=== PATIENT | female | born 1990 ===

== ENCOUNTER 2025-01-18 09:42 | Emergency (ER) | payer OTHER, SELFPAY ==
--- NOTE | ~2025-01-18 | XR_ITS ---
EXAMINATION: XR CHEST CLINICAL INFORMATION: cp/sob COMPARISON: None available. TECHNIQUE: 2 views of the chest were obtained. FINDINGS: Left-sided dual-lead in place with leads extending into the right atrium and right ventricle. The cardiac, hilar, and mediastinal contours are normal. The lungs are clear bilaterally. There is no pneumothorax or pleural effusion. There is no focal osseous or soft tissue abnormality. XR/XR chest 2V IMPRESSION: No active pulmonary disease. Electronically signed by: Avelino Holley MD 01/18/2025 10:58 AM EDT
--- NOTE | 2025-01-18 09:43 | ECG_ITS ---
Test Reason : chest pressure Blood Pressure : */* mmHG Vent. Rate : 59 BPM Atrial Rate : 59 BPM P-R Int : 208 ms QRS Dur : 110 ms QT Int : 460 ms P-R-T Axes : 28 5 4 degrees QTcB Int : 455 ms Sinus bradycardia Otherwise normal ECG No previous ECGs available Referred By: Generic ED Physician Electronically Signed By: Elliot Torres
[2025-01-18 09:49] VITALS: BP 149/91; PULSE 59; RESP 18; TEMP 36.3; O2SAT 97; BMI 48.3
[2025-01-18 10:23] LABS: MANUAL DIFF FLAG NO
[2025-01-18 10:25] LABS: Basophils Percent Auto 0.4 % (0-2); Eosinophils Absolute Auto 0.1 X10*3/uL (0.0-0.4); Eosinophils Percent Auto 1.9 % (0-4); Hemoglobin 13.1 g/dl (12.0-16.0); Imm Gran Abs Auto 0.01 X10*3/uL (0.00-0.03); Imm Gran Pct Auto 0.1 % (0.0-0.4); Lymphocytes Absolute Auto 1.2 X10*3/uL (1.2-4.9); Lymphocytes Percent Auto 17.9 % (20-40); Mean Corpuscular HGB Conc 32.8 g/dl (31.0-35.0); Mean Corpuscular Hemoglobin 28.8 pg (27.0-33.0); Mean Corpuscular Volume 87.9 fL (80.0-98.0); Mean Platelet Volume 10.8 fL (9.4-12.3); Monocytes Absolute Auto 0.5 X10*3/uL (0.1-1.2); Neutrophils Absolute Auto 4.9 x10*3/uL (2.0-8.3); Neutrophils Percent Auto 72.7 % (45-73); Platelet Count 182 X10*3/uL (160-400); Red Blood Count 4.55 X10*6/uL (4.20-5.50); Red Cell Distribution Width 13.2 % (11.0-16.0); White Blood Count 6.7 X10*3/uL (4.8-10.8)
[2025-01-18 10:42] LABS: Alanine Aminotransferase 11 U/L (0-31); Albumin Level 3.8 g/dL (3.5-5.0); Alkaline Phosphatase 93 U/L (39-117); Anion Gap 10 (12-20); Aspartate Amino Transferase 16 U/L (5-31); Bilirubin Total 0.3 mg/dL (0.0-1.0); Blood Urea Nitrogen 19 mg/dL (9-16); Calcium 8.8 mg/dL (8.4-10.2); Carbon Dioxide 26 mmol/L (22-29); Chloride 109 mmol/L (96-108); Creatinine Clr Calc Pharmacy 119.5; Estimated Glomerular Filt Rate > 60; Glucose Random 89 mg/dL (60-115); Potassium 4.1 mmol/L (3.3-5.1); Sodium 141 mmol/L (135-145); Total Protein 6.8 g/dL (6.5-8.0)
[2025-01-18 10:47] LABS: B Type Natriuretic Peptide 128 pg/mL (<100)
[2025-01-18 10:51] LABS: Troponin-I High Sensitivity < 2.7 ng/L (<3.5-17.0)
--- NOTE | 2025-01-18 11:20 | ED.CHESTPAIN ---
HPI - Chest Pain General Chief Complaint: Chest Pain Stated Complaint: AFIB, chest pressure since last night Time Seen by Provider: 01/18/25 11:20 History of Present Illness ED Provider: Shira HERRERA narrative: The patient is a 34-year-old female who was diagnosed with a atrial fibrillation at the age of 22. Apparently this was 1st diagnosed in [place]. She isn't really able to tell me why she was found to have atrial fibrillation at sudden she young age. She says that she has had pacemaker placed since the diagnosis. She has been on anticoagulation. She is also on flecainide. Recently the patient has been living in [place]. She was last hospitalized at [facility] in [facility] 2 months ago. 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 She has been on apixaban up to that point. Because of the finding of an atrial clot she was switched to warfarin, so she is currently on warfarin. The patient says that she has not felt well since yesterday. She developed a headache and palpitations last night. She ultimately felt somewhat better but this morning she again felt palpitations. She also felt short of breath and felt that she had pain with inspiration. Also her headache returned today. She therefore came to the emergency room. She has moved to this area from [place]. She has not yet established any local providers for care. Related Data Allergies Allergy/AdvReac Type Severity Reaction Status Date / Time No Known Allergies Allergy Verified 01/18/25 09:51 Review of Systems Review of Systems: Yes all other systems are reviewed and are negative [facility] Social History Social History Smoked in Last 30 Days: No Use of substances other than those prescribed or required for medical reasons: No Advance Directives: No Advance Directives Information Provided: No Do you have a plan to hurt others: No Plan Patient : No Physical Exam Vital Signs: Vital Signs: Last Vital Signs Temp 97.9 F 01/18/25 14:17 Pulse 57 01/18/25 14:17 Resp 17 01/18/25 14:17 BP 114/72 01/18/25 14:17 Pulse Ox 98 01/18/25 14:17 O2 Del Method Room Air 01/18/25 14:17 BMI result Body Mass Index 48.3 Const: Other: The patient is awake, alert, pleasant, cooperative. She does not seem in acute distress. HEENT: Other: Face is symmetrical, mucous membranes moist Eyes: General: appearance normal, both eyes and all related structures Neck: Other: The neck is entirely supple. No JVD. Resp: Effort & Inspection: normal respiratory effort Auscultation: clear to auscultation bilaterally Cardio: Rhythm: regular rhythm Heart sounds: S1 normal heart sound present and S2 normal heart sound present GI: Other: Abdomen is soft and nontender Skin: Other: Skin is dry and unremarkable Neuro: Other: The patient is awake and alert with a normal mental status. Cranial nerves are grossly intact. She has a supple neck. She moves her extremities normally with normal strength and sensation throughout and seems entirely neurologically intact. Extrem: Other: No calf swelling or tenderness Medications Administered Discontinued Medications Generic Name Dose Route Start Last Admin Trade Name Renuka PRN Reason Stop Dose Admin Diphenhydramine HCl 25 mg 01/18/25 11:42 01/18/25 12:12 Diphenhydramine Hcl 50 Mg/Ml Vial IVPUSH 01/18/25 11:43 25 mg ONCE ONE Administration Acetaminophen 1,000 mg in 100 mls @ 400 mls/hr 01/18/25 11:41 01/18/25 12:40 Ofirmev IV 01/18/25 11:55 Infused ONCE ONE Infusion Metoclopramide HCl 10 mg 01/18/25 11:42 01/18/25 12:12 Metoclopramide Hcl 10 Mg/2 Ml Vial IVPUSH 01/18/25 11:43 10 mg ONCE ONE Administration Medical Decision Making Medical Decision Making [facility] Narrative: The patient is a very pleasant 34-year-old female who has an unusual history with regard to atrial fibrillation. She says she was diagnosed with atrial fibrillation at the age of 22. This was originally diagnosed in [place]. For reasons she is not able to articulate she also has a pacemaker. She is on warfarin. She says that she was switched to warfarin from a DOAC recently because an echocardiogram had identified and atrial clot while on a DOAC. I believe this was a few months ago at [facility] in [place], [place]. She is also on flecainide. The patient has moved to this area and has not yet established any local doctors. She does not have a local primary care doctor or perfect bind machine operator. She describes having symptoms that may have been episodes of atrial fibrillation last night. She believes she is normally not in atrial fibrillation. She also was complaining of a headache and some pleuritic chest discomfort. Clinically the patient does not look particularly unwell on my suspicion for either a pulmonary embolism or an intracranial hemorrhage and this patient would be low despite her complaints of pleuritic chest pain and headache. She has a an unremarkable CBC with a normal white count and differential. Anticoagulation is somewhat subtherapeutic with the an INR 1.8. She has a an undetectable D-dimer. Comprehensive metabolic panel is unremarkable. Troponin is undetectable. BNP is mildly elevated at 128. Chest x-ray is normal. EKG shows sinus bradycardia 59 beats per minute. It is an otherwise normal EKG. The patient was treated symptomatically for her headache with IV acetaminophen, metoclopramide, and diphenhydramine. She felt considerably better. Her headache resolved. Her chest symptoms also resolved. Given her normal EKG, normal chest x-ray, undetectable D-dimer, normal vital signs, an overall benign clinical appearance my suspicion for any acutely dangerous process is low. I suspect she had some episodes of atrial fibrillation last night but she does not reveal any atrial fibrillation on the monitor here today. Occasionally she seemed to have a paced rhythm when her heart rate was slower. My overall impression is that the patient is safe for discharge. She will be given contact information to try to establish a local PCP and a local perfect bind machine operator. She is also given the contact information for the local anticoagulation clinic. In the meantime she should contact her old Coumadin clinic in [place] for advice regarding management of her slightly subtherapeutic INR today. She should return if worse. Lab Data 01/18/25 10:07 01/18/25 10:07 Labs: Lab Results 01/18/25 01/18/25 Range/Units 10:07 12:01 WBC 6.7 (4.8-10.8) X10*3/uL RBC 4.55 (4.20-5.50) X10*6/uL Hgb 13.1 (12.0-16.0) g/dl Hct 40.0 (37.0-47.0) % MCV 87.9 (80.0-98.0) fL MCH 28.8 (27.0-33.0) pg MCHC 32.8 (31.0-35.0) g/dl RDW 13.2 (11.0-16.0) % Plt Count 182 (160-400) X10*3/uL MPV 10.8 (9.4-12.3) fL Immature Gran % (Auto) 0.1 (0.0-0.4) % Neut % (Auto) 72.7 (45-73) % Lymph % (Auto) 17.9 L (20-40) % [place] % (Auto) 7.0 (2-11) % Eos % (Auto) 1.9 (0-4) % Baso % (Auto) 0.4 (0-2) % Lymph # (Auto) 1.2 (1.2-4.9) X10*3/uL [place] # (Auto) 0.5 (0.1-1.2) X10*3/uL Eos # (Auto) 0.1 (0.0-0.4) X10*3/uL Baso # (Auto) 0.0 (0.0-0.2) X10*3/uL Abs Immat Gran (auto) 0.01 (0.00-0.03) X10*3/uL Absolute Neuts (auto) 4.9 (2.0-8.3) x10*3/uL Absolute Nucleated RBC 0.000 (0.0-0.012) X10*3/uL Nucleated RBC % (auto) 0.0 (0.0-0.2) /100WBC PT 20.6 H (10.9-12.4) SEC INR 1.8 H (0.9-1.1) D-Dimer High Sensitivty < 150 NG/ML Sodium 141 (135-145) mmol/L Potassium 4.1 (3.3-5.1) mmol/L Chloride 109 H (96-108) mmol/L Carbon Dioxide 26 (22-29) mmol/L Anion Gap 10 L (12-20) BUN 19 H (9-16) mg/dL Creatinine 0.90 (0.5-1.4) mg/dL Estim Creat Clear Calc 119.5 Estimated GFR > 60 Random Glucose 89 (60-115) mg/dL Calcium 8.8 (8.4-10.2) mg/dL Total Bilirubin 0.3 (0.0-1.0) mg/dL AST 16 (5-31) U/L ALT 11 (0-31) U/L Alkaline Phosphatase 93 (39-117) U/L Troponin I High Sens < 2.7 (<3.5-17.0) ng/L B-Natriuretic Peptide 128 H (<100) pg/mL Total Protein 6.8 (6.5-8.0) g/dL Albumin 3.8 (3.5-5.0) g/dL Discharge Plan Discharge Clinical Impression: Chest pain, Headache, Paroxysmal atrial fibrillation Patient Disposition: Home, Self-Care Additional Instructions: Your testing in the emergency room today seems reassuring. The only finding of significance is that your INR is slightly subtherapeutic. Your INR today is 1.8. Please contact the office that has been advising you about warfarin (Coumadin) about any possible change in dosing in the short run. In the meantime you can try to get connected with the [facility] anticoagulation service. You can call [phone]. Additionally you will need to get a local primary care doctor and a local perfect bind machine operator. I have provided contact information for possible primary care offices. I have also provided the contact information for the local cardiology office. Please continue your regular medications. Return to the emergency room if you feel significantly worse. Referrals: [facility] [Provider Group] (New in the area, needs primary care, history of AFib and pacemaker) [facility] Primary Care, [place] [Provider Group] (New in the area, needs primary care, history of AFib and pacemaker) Tiffany Asif MD [Physician] - (New in the area, needs primary care, history of AFib and pacemaker) Interventions: ED Discharge Assessment Last Done: 01/18/25 14:17 Discharge Date/Time: 01/18/25 14:18 Print Language: Gambian
[2025-01-18] MEDS: diphenhydrAMINE HCL 50 MG/ML VIAL 25 MG IVPUSH (12:12)
[2025-01-18] MEDS: Metoclopramide HCl 10 MG/2 ML VIAL IVPUSH (12:12)
[2025-01-18] MEDS: Acetaminophen 1,000 MG/100 ML PIGGYBACK 400 MG IV (12:12)
[2025-01-18 12:13] VITALS: BP 114/72; PULSE 57; RESP 15; TEMP 36.6; O2SAT 98
[2025-01-18 12:23] LABS: INTERNATIONAL NORM RATIO 1.8 (0.9-1.1); Prothrombin Time 20.6 SEC (10.9-12.4)
[2025-01-18 12:26] LABS: D Dimer High Sensitivity < 150 NG/ML
[2025-01-18 14:17] VITALS: BP 114/72; PULSE 57; RESP 17; TEMP 36.6; O2SAT 98
== END 2025-01-18 14:18 | disposition home or self-care (01) ==
PROVIDERS: Emergency Provider Emergency Medicine
DX: R07.89 Other chest pain (principal); I48.0 Paroxysmal atrial fibrillation; R51.9 Headache, unspecified; R06.02 Shortness of breath; Z79.899 Other long term (current) drug therapy
CPT/HCPCS: 36415; 71046; 80053; 83880; 84484; 85025; 85379; 85610; 93005; 96365; 96375; 99284; 99285; J0131; J1200; J2765

== ENCOUNTER → 2025-01-18 09:43 | Outpatient (BNV) | payer OTHER, SELFPAY | PROVIDERS: Emergency Provider Emergency Medicine; Visit Provider Internal Medicine Cardiovascular Disease | DX: R07.89 Other chest pain (principal); R00.1 Bradycardia, unspecified | CPT/HCPCS: 93010 ==

== ENCOUNTER → 2025-01-18 10:39 | Outpatient (BNV) | payer SELFPAY | PROVIDERS: Visit Provider Radiology Diagnostic Radiology | DX: R07.9 Chest pain, unspecified (principal); R06.02 Shortness of breath | CPT/HCPCS: 71046 ==

== ENCOUNTER 2025-01-29 13:16 | Emergency (ER) | payer OTHER, SELFPAY ==
[2025-01-29 13:32] VITALS: BP 140/80; PULSE 57; RESP 16; TEMP 36.3; O2SAT 98; BMI 50.2
--- NOTE | 2025-01-29 13:43 | ED.GENADULT ---
HPI - General Adult General Chief complaint: Allergic Reaction Stated complaint: Hives Time Seen by Provider: 01/29/25 14:19 History of Present Illness HPI narrative: Patient is a 34-year-old female presented today with having hives all over her body since December. Patient was started on Wellbutrin right before that. Patient unsure the dose. She stopped it herself 2 days ago. There is no fever no chills. She took some Benadryl at home. It did not help. There is no other changes in her environment additional shortness of breath there is no diaphoresis there is no dizziness there is no other systemic complaints. Patient from home. Related Data Previous Rx's ?Medication ?Instructions ?Recorded diphenhydramine HCl 25 mg capsule 25 mg PO Q8H 5 days #15 caps 01/29/25 (Benadryl) famotidine 20 mg tablet (Pepcid) 20 mg PO BID 5 days #10 tabs 01/29/25 prednisone 20 mg tablet 40 mg (2 x 20 mg) PO DAILY #10 tabs 01/29/25 Allergies Allergy/AdvReac Type Severity Reaction Status Date / Time bupropion Allergy Intermediate Hives Verified 01/29/25 13:33 Review of Systems Review of Systems: No fever no chills no diaphoresis no shortness of breath Yes all other systems are reviewed and are negative [facility] Past Medical History Attestation statement: The following information was validated with the patient. Social History Social History Advance Directives: No Advance Directives Information Provided: Yes Do you have a plan to hurt others: No Plan Physical Exam ED Vital Signs: Vital Signs - 24 hr 01/29/25 13:32 01/29/25 14:24 Temperature 97.4 F 97.0 F Pulse Rate 57 55 Respiratory Rate 16 18 Blood Pressure 140/80 H 124/65 Pulse Oximetry 98 98 Oxygen Delivery Method Room Air Room Air BMI result Body Mass Index 50.2 Appearance: Alert. Oriented X3. No acute distress. Eyes: Pupils equal, round and reactive to light. ENT: Pharynx normal. Neck: Normal inspection. Neck supple. No lymph nodes noted. No crepitus CVS: Normal heart rate and rhythm. Pulses normal. Normal S1 and S2 Respiratory: No respiratory distress. Breath sounds normal. No Wheezing. No rales Abdomen: Soft and nontender. No rigidity. No distention. good BS x4 Skin: Diffuse erythematous rash that is blanching not involving any mucosal membrane over the head over the face over the neck Normal skin turgor. Extremities: No lower extremity edema. Neurovascular intact to all extremities. No Lacerations. No Rash Neuro: Oriented X 3. No motor deficit. No sensory deficit. Moving all extermities. No slurred speech Course Course Course Narrative: RME, this is a rapid medical exam performed by Ck Mejía please refer to primary provider for complete H&P- 34-year-old female presents for evaluation of hives. Patient reports that she has had hives on and off for about a month and a half. Her symptoms started about a week after starting bupropion. she did not take the bupropion yesterday. She reports hives to her chest and back mostly, denies any shortness of breath. She also complains of palpitations. Plan for basic labs, EKG due to palpitations. She will be given Benadryl, Pepcid, prednisone for her urticaria. No evidence of respiratory compromise, lungs are clear to auscultation Medications Administered Discontinued Medications Generic Name Dose Route Start Last Admin Trade Name Freq PRN Reason Stop Dose Admin Diphenhydramine HCl 50 mg 01/29/25 13:42 01/29/25 14:22 Diphenhydramine Hcl 25 Mg Capsule PO 01/29/25 13:43 50 mg ONCE ONE Administration Famotidine 20 mg 01/29/25 13:42 01/29/25 14:23 Famotidine 20 Mg Tablet PO 01/29/25 13:43 20 mg ONCE ONE Administration Prednisone 60 mg 01/29/25 13:42 01/29/25 14:23 Prednisone 20 Mg Tablet PO 01/29/25 13:43 60 mg ONCE ONE Administration Medical Decision Making Medical Decision Making MDM Narrative: Positive uritcaria rash that is blanching not involving any mucosal membrane there is no shortness of breath. No diaphoresis. No fever no chills. No systemic complaints no dizziness. Will give steroid Benadryl and Pepcid on an outpatient basis. Have patient follow-up closely. Contact psychiatrist on an outpatient basis. Patient already stop the possible offending agent. He stable condition will discharge from Differential Diagnosis Differential Diagnoses: The differential diagnosis associated with the presentation includes Allergic reaction, [place] Admission/Observation Consideration of admission/observation: Escalation of care including admission/observation considered Lab Data MDM Lab Attestation statement: I reviewed the patient's lab results. 01/29/25 13:57 01/29/25 13:56 Labs: Lab Results 01/29/25 01/29/25 Range/Units 13:56 13:57 WBC 7.9 (4.8-10.8) X10*3/uL RBC 4.51 (4.20-5.50) X10*6/uL Hgb 13.1 (12.0-16.0) g/dl Hct 39.9 (37.0-47.0) % MCV 88.5 (80.0-98.0) fL MCH 29.0 (27.0-33.0) pg MCHC 32.8 (31.0-35.0) g/dl RDW 13.6 (11.0-16.0) % Plt Count 206 (160-400) X10*3/uL MPV 10.0 (9.4-12.3) fL Immature Gran % (Auto) 0.1 (0.0-0.4) % Neut % (Auto) 65.9 (45-73) % Lymph % (Auto) 25.7 (20-40) % [place] % (Auto) 6.8 (2-11) % Eos % (Auto) 1.0 (0-4) % Baso % (Auto) 0.5 (0-2) % Lymph # (Auto) 2.0 (1.2-4.9) X10*3/uL [place] # (Auto) 0.5 (0.1-1.2) X10*3/uL Eos # (Auto) 0.1 (0.0-0.4) X10*3/uL Baso # (Auto) 0.0 (0.0-0.2) X10*3/uL Abs Immat Gran (auto) 0.01 (0.00-0.03) X10*3/uL Absolute Neuts (auto) 5.2 (2.0-8.3) x10*3/uL Absolute Nucleated RBC 0.000 (0.0-0.012) X10*3/uL Nucleated RBC % (auto) 0.0 (0.0-0.2) /100WBC Sodium 142 (135-145) mmol/L Potassium 4.3 (3.3-5.1) mmol/L Chloride 107 (96-108) mmol/L Carbon Dioxide 28 (22-29) mmol/L Anion Gap 11 L (12-20) BUN 18 H (9-16) mg/dL Creatinine 0.89 (0.5-1.4) mg/dL Estim Creat Clear Calc 123.8 Estimated GFR > 60 Random Glucose 106 (60-115) mg/dL Calcium 8.5 (8.4-10.2) mg/dL Magnesium 1.9 (1.6-2.6) mg/dL Total Bilirubin 0.4 (0.0-1.0) mg/dL AST 17 (5-31) U/L ALT 14 (0-31) U/L Alkaline Phosphatase 93 (39-117) U/L Total Protein 6.6 (6.5-8.0) g/dL Albumin 3.7 (3.5-5.0) g/dL Beta HCG, Quant < 2 mIU/mL Chronic Conditions History of atrial fibrillation Social Determinants Patient?s care significantly limited by Social Determinants of Health including: Problems related to primary support group Discharge Plan Discharge Clinical Impression: Allergic reaction, Urticaria Patient Disposition: Home, Self-Care Instructions: Urticaria (ED), General Allergic Reaction (ED) Additional Instructions: Follow-up with your psychiatrist about Wellbutrin. Prescriptions: New prednisone 20 mg tablet 40 mg PO DAILY Qty: 10 0RF famotidine [Pepcid] 20 mg tablet 20 mg PO BID 5 Days Qty: 10 0RF diphenhydramine HCl [Benadryl] 25 mg capsule 25 mg PO Q8H 5 Days Qty: 15 0RF Referrals: Physician,None [Physician] - 02/01/25 (Follow-up with your primary care doctor and with your psychiatrist) Print Language: Indonesian
--- NOTE | 2025-01-29 13:44 | ECG_ITS ---
Test Reason : palpitations Blood Pressure : */* mmHG Vent. Rate : 76 BPM Atrial Rate : 76 BPM P-R Int : 216 ms QRS Dur : 82 ms QT Int : 426 ms P-R-T Axes : -2 1 -11 degrees QTcB Int : 479 ms Atrial-paced rhythm with prolonged AV conduction Minimal voltage criteria for LVH, may be normal variant ( R in aVL ) Nonspecific ST and T wave abnormality Abnormal ECG When compared with ECG of 18-Jan-2025 09:46, Atrial-paced rhythm has replaced Normal sinus rhythm Referred By: Rudolph Mejía Electronically Signed By: NONA ZUÑIGA MD
[2025-01-29 14:01] LABS: MANUAL DIFF FLAG NO
[2025-01-29 14:02] LABS: Basophils Percent Auto 0.5 % (0-2); Eosinophils Absolute Auto 0.1 X10*3/uL (0.0-0.4); Hematocrit 39.9 % (37.0-47.0); Hemoglobin 13.1 g/dl (12.0-16.0); Imm Gran Abs Auto 0.01 X10*3/uL (0.00-0.03); Imm Gran Pct Auto 0.1 % (0.0-0.4); Lymphocytes Percent Auto 25.7 % (20-40); Mean Corpuscular HGB Conc 32.8 g/dl (31.0-35.0); Mean Corpuscular Volume 88.5 fL (80.0-98.0); Monocytes Absolute Auto 0.5 X10*3/uL (0.1-1.2); Monocytes Percent Auto 6.8 % (2-11); Neutrophils Absolute Auto 5.2 x10*3/uL (2.0-8.3); Neutrophils Percent Auto 65.9 % (45-73); Platelet Count 206 X10*3/uL (160-400); Red Blood Count 4.51 X10*6/uL (4.20-5.50); Red Cell Distribution Width 13.6 % (11.0-16.0); White Blood Count 7.9 X10*3/uL (4.8-10.8)
[2025-01-29 14:22] LABS: Alanine Aminotransferase 14 U/L (0-31); Albumin Level 3.7 g/dL (3.5-5.0); Anion Gap 11 (12-20); Aspartate Amino Transferase 17 U/L (5-31); Bilirubin Total 0.4 mg/dL (0.0-1.0); Blood Urea Nitrogen 18 mg/dL (9-16); Calcium 8.5 mg/dL (8.4-10.2); Carbon Dioxide 28 mmol/L (22-29); Chloride 107 mmol/L (96-108); Creatinine Clr Calc Pharmacy 123.8; Estimated Glomerular Filt Rate > 60; Glucose Random 106 mg/dL (60-115); Magnesium 1.9 mg/dL (1.6-2.6); Potassium 4.3 mmol/L (3.3-5.1); Sodium 142 mmol/L (135-145); Total Protein 6.6 g/dL (6.5-8.0)
[2025-01-29] MEDS: diphenhydrAMINE HCL 25 MG CAPSULE 50 MG PO (14:22)
[2025-01-29] MEDS: predniSONE 20 MG TABLET 60 MG PO (14:23)
[2025-01-29] MEDS: Famotidine 20 MG TABLET PO (14:23)
[2025-01-29 14:24] VITALS: BP 124/65; PULSE 55; RESP 18; TEMP 36.1; O2SAT 98
[2025-01-29 14:25] LABS: Alkaline Phosphatase 93 U/L (39-117); HCG Quantitative < 2 mIU/mL
--- OUTSIDE RECORDS SUMMARY | 2025-01-29 14:26 | XMS_ITS | Continuity of Care Document ---
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
[2025-01-29 14:54] VITALS: BP 124/65; PULSE 55; RESP 18; TEMP 36.1; O2SAT 98
== END 2025-01-29 14:54 | disposition home or self-care (01) ==
PROVIDERS: Physician Assistant; Emergency Provider Emergency Medicine Emergency Medical Services; PCP Internal Medicine
DX: T78.40XA Allergy, unspecified, initial encounter (principal); L50.9 Urticaria, unspecified; X58.XXXA Exposure to other specified factors, initial encounter; R00.2 Palpitations
CPT/HCPCS: 36415; 80053; 83735; 84702; 85025; 93005; 99283; 99284

== ENCOUNTER → 2025-01-29 13:44 | Outpatient (BNV) | payer OTHER, SELFPAY | PROVIDERS: Emergency Provider Emergency Medicine Emergency Medical Services; PCP Internal Medicine; Visit Provider Internal Medicine Cardiovascular Disease | DX: R00.2 Palpitations (principal); R94.31 Abnormal electrocardiogram [ECG] [EKG] | CPT/HCPCS: 93010 ==

== ENCOUNTER 2025-03-05 12:14 | Outpatient (REF) | payer OTHER, SELFPAY ==
[2025-03-05 13:19] LABS: MANUAL DIFF FLAG NO
[2025-03-05 13:29] LABS: Basophils Absolute Auto 0.1 X10*3/uL (0.0-0.2); Basophils Percent Auto 0.5 % (0-2); Eosinophils Absolute Auto 0.1 X10*3/uL (0.0-0.4); Eosinophils Percent Auto 0.8 % (0-4); Hematocrit 40.7 % (37.0-47.0); Hemoglobin 13.6 g/dl (12.0-16.0); Imm Gran Abs Auto 0.02 X10*3/uL (0.00-0.03); Imm Gran Pct Auto 0.2 % (0.0-0.4); Lymphocytes Absolute Auto 1.9 X10*3/uL (1.2-4.9); Lymphocytes Percent Auto 19.5 % (20-40); Mean Corpuscular HGB Conc 33.4 g/dl (31.0-35.0); Mean Corpuscular Hemoglobin 29.7 pg (27.0-33.0); Mean Corpuscular Volume 88.9 fL (80.0-98.0); Mean Platelet Volume 10.8 fL (9.4-12.3); Monocytes Absolute Auto 0.8 X10*3/uL (0.1-1.2); Monocytes Percent Auto 7.8 % (2-11); Neutrophils Percent Auto 71.2 % (45-73); Platelet Count 222 X10*3/uL (160-400); Red Blood Count 4.58 X10*6/uL (4.20-5.50); Red Cell Distribution Width 13.2 % (11.0-16.0); White Blood Count 9.8 X10*3/uL (4.8-10.8)
--- OUTSIDE RECORDS SUMMARY | 2025-03-05 13:38 | XMS_ITS ---
Author Name [facility] Organization Unknown Results Test Name/Text Value Interpretation Date Range Source BUN/CREAT RATIO 13.5 Normal [id number] R [facility] BUN 14MG/DL Normal [id number] 6 - 20 [facility] ANION GAP 12MEQ/L Normal [id number] 4 - 20 [facility] CALCIUM 8.6MG/DL Normal [id number] 8.5 - 10.5 [facility] eGFR 72ML/MIN/1.73M Normal [id number] 60 - RI [facility] SODIUM 144MEQ/L Normal [id number] 135 - 146 [facility] CARBON DIOXIDE 27MEQ/L Normal [id number] 19 - 32 [facility] GLUCOSE 86MG/DL Normal [id number] 70 - 99 [facility] OSMOLALITY 286.6mOsm/kg Normal [id number] 270 - 290 [facility] POTASSIUM 4MEQ/L Normal [id number] 3.5 - 5.4 [facility] CREATININE 1.04MG/DL Normal [id number] 0.6 - 1.3 [facility] CHLORIDE 105MEQ/L Normal [id number] 96 - 106 [facility] WBC 8K/uL Normal [id number] 4 - 10 [facility] EOSINOPHILS 1.4% Normal [id number] [facility] HEMATOCRIT 41.2% Normal [id number] 36 - 47 [facility] BASOPHILS 0.3% Normal [id number] [facility] # NEUTROPHILS 4.84K/uL Normal [id number] 2 - 8 [facility] PLATELET 380297 Normal [id number] 358143 - 962719 [facility] # MONOCYTES 0.56K/UL Normal [id number] 0.2 - 1 [facility] RDW-SD 43.2fL Normal [id number] 35 - 46 [facility] MCHC 32.5g/dL Normal [id number] 31 - 36 [facility] NUCLEATED RBC 0NRBC/100WBC Normal [id number] 0 - 0 [facility] # LYMPHOCYTES 2.45K/UL Normal [id number] 0.8 - 4 [facility] RBC 4.56MILLION/uL Normal [id number] 4.3 - 5.5 [facility] # IMMATURE GRANULOCYTES 0.02K/UL Normal [id number] 0 - 0.1 [facility] # BASOPHILS 0.02K/UL Normal [id number] 0 - 0.2 [facility] MCH 29.4pg Normal [id number] 25 - 34 [facility] # NRBC 0k/UL Normal [id number] 0 - 0.1 [facility] IMMATURE GRANULOCYTES 0.3% Normal [facility] NEUTROPHILS 60.4% Normal [id number] [facility] # EOSINOPHILS 0.11K/UL Normal [id number] 0 - 0.5 [facility] MCV 90.4fL Normal [id number] 80 - 99 [facility] MONOCYTES 7% Normal [id number] [facility] LYMPHOCYTES 30.6% Normal [id number] [facility] HEMOGLOBIN 13.4g/dL Normal [id number] 12 - 16 [facility] PROTHROMBIN TIME 22.7SECONDS Normal [id number] [facility] INR 2 Normal [id number] [facility] Encounters Encounter Type Encounter Reason Primary Diagnosis Location Date Ambulatory [facility] 02/14/2025 Ambulatory [facility] 02/14/2025 Care Team Organization Name Specialty Phone Email Start Date End Da te Joel PAZ Primary Care [facility] 02/15/2025 [facility] Aditya Crane Primary Care [facility]24 [facility] N/A Linen Room Houseperson N/A N/A 01/23/2025 [facility] ANGELO PAZ Primary Care 2024 [facility] BROOK MATIAS Primary Care 01/12/2025
[2025-03-05 13:41] LABS: INTERNATIONAL NORM RATIO 1.6 (0.9-1.1); Prothrombin Time 18.9 SEC (10.9-12.4)
[2025-03-05 14:02] LABS: Alanine Aminotransferase 14 U/L (0-31); Albumin Level 4.1 g/dL (3.5-5.0); Alkaline Phosphatase 85 U/L (39-117); Anion Gap 12 (12-20); Aspartate Amino Transferase 19 U/L (5-31); Bilirubin Total 0.3 mg/dL (0.0-1.0); Blood Urea Nitrogen 17 mg/dL (9-16); Calcium 8.9 mg/dL (8.4-10.2); Carbon Dioxide 26 mmol/L (22-29); Chloride 111 mmol/L (96-108); Cholesterol 169 mg/dL (<200); Estimated Glomerular Filt Rate > 60; Glucose Random 81 mg/dL (60-115); HDL Cholesterol 39 mg/dL (>40); LDL Cholesterol Calculated 113 mg/dL (<100); Potassium 4.1 mmol/L (3.3-5.1); Sodium 145 mmol/L (135-145); Thyroid Stimulating Hormone 1.35 uIU/mL (0.32-4.0); Triglycerides 89 mg/dL (<150)
== END 2025-03-05 12:15 | disposition home or self-care (01) ==
LOC: HO.10HDL 12:14
PROVIDERS: Visit Provider Internal Medicine
DX: E28.2 Polycystic ovarian syndrome (principal); E66.01 Morbid (severe) obesity due to excess calories; F32.9 Major depressive disorder, single episode, unspecified; I49.5 Sick sinus syndrome; I50.9 Heart failure, unspecified; Z95.0 Presence of cardiac pacemaker; Z98.84 Bariatric surgery status
CPT/HCPCS: 36415; 80053; 80061; 84443; 85025; 85610

== ENCOUNTER 2025-04-13 09:09 | Outpatient (AMB) | payer MEDICAID, SELFPAY ==
--- OUTSIDE RECORDS SUMMARY | 2004-04-15 20:00 | XMS_ITS | Continuity of Care Document ---
Author Organization Chris Ritchie [facility] Address [address] [place] [address] Phone Care Team Providers Care Town Marshal Name Role Phone Z-Converted, Provider Unavailable Unavailabl e Advance Directives Directive Yes / No Effective Date File Name No Information Encounters Encounter Description Practice Location Reason(s) For Visit Diagnoses Date Provider Providers Copied on Encounter Chris Carreno [facility], [address] [place] [address],[address], [place], [place], [id number], [place] tel:[phone] [place] [facility] Elevated blood pressure reading without diagnosis [...]
--- NOTE | 2025-04-13 09:31 | MHC.OFFVISCO ---
Intake Intake Visit Reasons: Anticoagulation Financial Representative Required: No Allergies bupropion Allergy (Intermediate, Verified 04/13/25 09:19) Hives Medication List - Last Reconciled 04/13/25 by Sagrario Weiss RN warfarin 2.5 mg PO DAILY Is last menstrual period known: Yes Last menstrual period: 04/05/25 Post menopausal: No Patient : No Nursing Note INR: 3.0- in therapeutic range of 2-3 Medications and supplements reviewed- med list updated No changes in health, diet, medications, or supplements, Denies any signs and symptoms of bleeding or bruising or clotting. Bleeding, bruising, clotting discussed Nutritional guidance given - eat a green today Dose: cont reg dosing 7.5mg x 2 5mg x 5 F/U INR: 1 week Patient verbalizes understanding of instructions given pt admitted to acs today - on warfarin due to developing a clot right atrium pmh and meds reviewed with pt. med list updated. educational material reviewed with pt including s/s bleeding and clotting dietary management discussed, pt no show and compliance reviewed and signed by pt. pt prev on eliquis and she states developed clot right atrium, she was transitioned to warfarin 11/2024. 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 Illness/Depression: Yes (depression/anxiety) Is last menstrual period known: Yes Date of Last Menstrual Period: 04/05/25 Post menopausal: No Patient : No Surgeries: pacemaker, bariatric surgery 09/2024 Anti-Coag. Education Record Teaching Recipient: Patient What is the easiest way to learn: Reading, Listening, Demonstration and Education Packet Significant other who can be involved in Teaching Process when Indicated: none Financial Representative Required: No Readiness To Learn: Good Teaching Methods: Demonstration, Discussion, Handout and Teach Back Response to Teaching: Reinforcement Needed Re-Education needs: Reinforce Content Education Intervention/Brief Description of Teaching 1. Able to state reason for taking Warfarin: Yes 2. Able to state Pain Management techniques: Yes 3. Able to state action of Warfarin.: Yes Able to state current dose, pill color, how and when Warfarin to be taken: Yes Able to identify signs of bleeding &/or clotting: Yes 4. Able to identify need to keep diet consistent in regard to vitamin K intake: Yes Able to state restriction on alcohol: Yes 5. Able to state need for compliance with PT/INR testing: Yes Describes rationale for carrying ID and wearing Medic Alert bracelet: Yes Patient instructed to monitor for excess bruising or signs/symptoms of clotting or bleeding: Yes 6. Able to state that there are drugs that interact with Warfin: Yes 7. Able to state the need to seek medical attention when illness/injury occur.: Yes Describes the need to avoid activities with high risk of injury: Yes 8. Able to state duration of treatment: Yes 9. Demonstrates understanding of notifying all providers of pending dental surgical, or other invasive procedures: Yes 10. Able to state Home Care instructions Questionnaires HAS-BLED Does the patient had uncontrolled Hypertension?: No Does the patient have renal disease?: No Does the patient have liver disease?: No Does the patient have a history of stroke?: Yes (mini stroke) Has the patient had major bleeding or predisposition to bleeding?: No Does the patient have labile INRs?: Yes Is the patient over 65 years of age?: No Is the patient on medications that gives them a predisposition to bleeding?: Yes Does the patient use alcohol?: Yes HAS-BLED Score: 4 CHADSVASC Age: <65 Gender: Female Does the patient have a history of CHF?: Yes Does the patient have a history of Hypertension?: Yes Does the patient have a history of Stroke/TIA/Thromboembolism?: Yes Does the patient have a history of Vascular Disease (prior ID, PAD or aortic plaque)?: No Does the patient have a history of Diabetes?: No CHADS VACS Score: 5 Nilson Prediction Score Rsk VTE Active Cancer: No Previous VTE, excluding superficial vein thrombosis: Yes Reduced mobility: No Already known Thrombophilic Condition: No With-in last month Trauma and/or Surgery: No Elderly 70 year or older: No Heart and/or Respiratory Failure: Yes Acute Myocardial infarction and/or Ischemic Stroke: Yes Acute Infection and/or Rheumatologic Disorder: No Obesity (BMI 30 or greater): Yes Ongoing Hormonal Treatment: No Score: 6 Nilson Score less than 4; Low Risk of VTE Nilson Score 4 or greater; High Risk of VTE Coding Level of Care Code New Patient Level 2 Diagnoses Current use of anticoagulant therapy Z79.01 Results AMB INR Fingerstick AMB INR Fingerstick 3.0 Last Edit by Sagrario Weiss RN on 04/13/25 09:56 interface delay Assessment & Plan Assessment & Plan (1) Current use of anticoagulant therapy: Code(s): Z79.01 - residential (current) use of anticoagulants Category: Medical Medications: New flecainide 100 mg PO Q12H amlodipine 10 mg PO DAILY magnesium oxide 400 mg PO BID metoprolol succinate ER 50 mg PO BID sacubitril-valsartan 24-26 mg (Entresto) 1 tab PO BID cholecalciferol (vitamin D3) 25 mcg PO BID
[2025-04-13 16:23] LABS: Prothrombin Time Whole Bld POC 35.7 sec (11.1-13.5); ~PT, ~INR - Anti Coag Clinic 3.0 (0.9-1.1)
== END 2025-04-13 10:52 | disposition home or self-care (01) ==
LOC: HO.ACS 09:09
PROVIDERS: PCP Internal Medicine; Visit Provider Internal Medicine Medical Oncology
DX: Z79.01 Long term (current) use of anticoagulants (principal)

== ENCOUNTER → 2025-04-13 09:09 | Outpatient (BNVA) | payer MEDICAID, SELFPAY | PROVIDERS: PCP Internal Medicine; Visit Provider Internal Medicine Medical Oncology | DX: I48.0 Paroxysmal atrial fibrillation (principal); I48.19 Other persistent atrial fibrillation; Z79.01 Long term (current) use of anticoagulants; Z51.81 Encounter for therapeutic drug level monitoring | CPT/HCPCS: 85610; 99202 ==

== ENCOUNTER 2025-04-13 19:08 | Emergency (ER) | payer MEDICAID, SELFPAY ==
--- NOTE | ~2025-04-13 | CT_ITS ---
CLINICAL HISTORY: fall, headache and dizziness CT head without contrast Comparison: None Findings: There is no acute intracranial hemorrhage. Ventricles are of normal size and shape. No mass effect or midline shift is present. The tovar-white matter differentiation appears normal. The visualized portions of the orbits, paranasal sinuses, and mastoids are unremarkable. No fractures are identified. IMPRESSION: Normal noncontrast head CT. This document has been electronically signed by: Chris Hope MD on 04/13/2025 20:15:42
[2025-04-13 19:12] VITALS: BP 130/96; PULSE 120; RESP 16; TEMP 36.8; O2SAT 96; BMI 50.1
--- NOTE | 2025-04-13 19:14 | ECG_ITS ---
Test Reason : weakness Blood Pressure : */* mmHG Vent. Rate : 115 BPM Atrial Rate : 227 BPM P-R Int : * ms QRS Dur : 100 ms QT Int : 278 ms P-R-T Axes : 162 -9 62 degrees QTcB Int : 384 ms Atrial flutter with variable A-V block Left ventricular hypertrophy with repolarization abnormality ( R in aVL ) Abnormal ECG When compared with ECG of 29-Jan-2025 13:47, Atrial flutter has replaced Electronic ventricular pacemaker Vent. rate has increased by 39 bpm Referred By: Rudolph Mejía Electronically Signed By: Elliot Torres
--- NOTE | 2025-04-13 19:14 | ED.GENADULT ---
HPI - General Adult General Chief complaint: Fall Stated complaint: head, shoulder, leg injury, dizziness fall 04/12/25 Time Seen by Provider: 04/13/25 20:50 Source: patient Mode of arrival: ambulatory Limitations: no limitations History of Present Illness ED Provider: HPI narrative: Patient's with a history of AFib on Coumadin apparently had marijuana yesterday and got dizzy and fell hitting her head to the ground comes here for the headache no loss of consciousness no seizures no vomiting Related Data Home Medications ?Medication ?Instructions ?Recorded ?Confirmed amlodipine 10 mg tablet 10 mg PO DAILY 04/13/25 04/13/25 cholecalciferol (vitamin D3) 25 25 mcg PO BID 04/13/25 04/13/25 mcg (1,000 unit) capsule flecainide 100 mg tablet 100 mg PO Q12H 04/13/25 04/13/25 magnesium oxide 400 mg PO BID 04/13/25 04/13/25 metoprolol succinate 50 mg capsule 50 mg PO BID 04/13/25 04/13/25 sprinkle, ext. release 24 hr sacubitril 24 mg-valsartan 26 mg 1 tab PO BID 04/13/25 04/13/25 tablet (Entresto) warfarin 2.5 mg tablet 2.5 mg PO DAILY 04/13/25 04/13/25 Allergies Allergy/AdvReac Type Severity Reaction Status Date / Time bupropion Allergy Intermediate Hives Verified 04/13/25 19:16 Review of Systems Review of Systems: Yes all other systems are reviewed and are negative PMFSH Past Medical History Medical History Current use of anticoagulant therapy Afib Social History Social History Housing: Apartment Alcohol intake: current Alcohol intake frequency: a few times a month Patient Tobacco Use Status: Never used Tobacco Smoked in Last 30 Days: No Use of substances other than those prescribed or required for medical reasons: Yes Substance Use Type: Marijuana Substance Use Frequency: Occasionally Substance Use Frequency Other:: 1 Last Used Substance: Days (ago) Advance Directives: No Advance Directives Information Provided: No Do you have a plan to hurt others: No Plan 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 Oriented X3. No acute distress. Eyes: PERRLA, No Nystagmus ENT: Pharynx normal. Oral Mucosa moist Neck: Normal inspection. Neck supple. No midline tenderness CVS: Irregularly irregular heart rate no murmur. Pulses normal. Respiratory: No respiratory distress. Equal air entry bilateral, no wheezing/rales/rhonchi Abdomen: Soft and nontender. Bowel sounds are present, no mass palpable, no CVA tenderness Skin: Skin warm and dry. Normal skin color. Normal skin turgor. Extremities: No lower extremity edema. No calf tenderness Neuro: Oriented X 3. No motor deficit. No sensory deficit.No cerebellar signs , cranial nerves II-XII intact Course Course Course Narrative: RME, this is a rapid medical exam performed by Ck Mejía please refer to primary provider for complete H&P- 35-year-old female with a past medical history significant for atrial fibrillation on Coumadin, hypertension presents for evaluation after a fall. The patient reports falling yesterday. She has had headaches and dizziness since. Plan for CT scan of the brain given the anticoagulation, we will check basic labs, EKG and an INR. Medications Administered Discontinued Medications Generic Name Dose Route Start Last Admin Trade Name Freq PRN Reason Stop Dose Admin Tramadol HCl 50 mg 04/13/25 21:06 04/13/25 21:23 Tramadol Hcl 50 Mg Tablet PO 04/13/25 21:07 50 mg ONCE ONE Administration Medical Decision Making Medical Decision Making [facility] Narrative: Patient with history of mechanical fall after marijuana use head CT is negative no active bleed will discharge patient home advised to take Tylenol for headache labs are stable Lab Data [facility] Lab Attestation statement: I reviewed the patient's lab results. 04/13/25 19:26 04/13/25 19:26 Labs: Lab Results 04/13/25 Range/Units 19: WBC 9.4 (4.8-10.8) X10*3/uL RBC 4.66 (4.20-5.50) X10*6/uL Hgb 13.8 (12.0-16.0) g/dl Hct 41.0 (37.0-47.0) % MCV 88.0 (80.0-98.0) fL MCH 29.6 (27.0-33.0) pg MCHC 33.7 (31.0-35.0) g/dl RDW 12.8 (11.0-16.0) % Plt Count 239 (160-400) X10*3/uL MPV 10.3 (9.4-12.3) fL Immature Gran % (Auto) 0.3 (0.0-0.4) % Neut % (Auto) 73.5 H (45-73) % Lymph % (Auto) 17.9 L (20-40) % Garden % (Auto) 7.6 (2-11) % Eos % (Auto) 0.3 (0-4) % Baso % (Auto) 0.4 (0-2) % Lymph # (Auto) 1.7 (1.2-4.9) X10*3/uL Garden # (Auto) 0.7 (0.1-1.2) X10*3/uL Eos # (Auto) 0.0 (0.0-0.4) X10*3/uL Baso # (Auto) 0.0 (0.0-0.2) X10*3/uL Abs Immat Gran (auto) 0.03 (0.00-0.03) X10*3/uL Absolute Neuts (auto) 6.9 (2.0-8.3) x10*3/uL Absolute Nucleated RBC 0.000 (0.0-0.012) X10*3/uL Nucleated RBC % (auto) 0.0 (0.0-0.2) /100WBC PT 31.8 H D (10.9-12.4) SEC INR 2.8 H (0.9-1.1) Sodium 143 (135-145) mmol/L Potassium 3.9 (3.3-5.1) mmol/L Chloride 111 H (96-108) mmol/L Carbon Dioxide 22 (22-29) mmol/L Anion Gap 14 (12-20) BUN 15 (9-16) mg/dL Creatinine 1.07 (0.5-1.4) mg/dL Estim Creat Clear Calc 98.3 Estimated GFR 58 Random Glucose 134 H (60-115) mg/dL Calcium 8.7 (8.4-10.2) mg/dL Total Bilirubin 0.6 (0.0-1.0) mg/dL AST 103 H (5-31) U/L ALT 166 H (0-31) U/L Alkaline Phosphatase 88 (39-117) U/L Total Protein 7.0 (6.5-8.0) g/dL Albumin 4.2 (3.5-5.0) g/dL Beta HCG, Quant < 2 mIU/mL Independent Interpretation I performed an independent interpretation of an: EKG and CT Scan Interpretation: Atrial flutter with variable block ventricular rate [address]-T changes no acute ischemia Radiology Impression Discussion of test interpretation with radiology: I have reviewed the radiologist's reading. Radiologist Impression: No acute Discharge Plan Discharge Clinical Impression: Minor closed head injury, Atrial fibrillation Patient Disposition: Home, Self-Care Instructions: A-fib (Atrial Fibrillation) (ED), Head Injury (ED) Additional Instructions: Care and cautions as advised Continue take your medications as prescribed by electrical logging operator Prescriptions: No Action warfarin 2.5 mg tablet 2.5 mg PO DAILY Protocol: Dose Management Condition: Wednesday (Week One) Dose/Route: 5 mg Instruction: 2 x 2.5 mg tablets Condition: Wednesday Dose/Route: 5 mg Instruction: 2 x 2.5 mg tablets Condition: Wednesday Dose/Route: 7.5 mg Instruction: 3 x 2.5 mg tablets Condition: Wednesday Dose/Route: 5 mg Instruction: 2 x 2.5 mg tablets Condition: Dose/Route: 5 mg Instruction: 2 x 2.5 mg tablets Condition: Wednesday Dose/Route: 7.5 mg Instruction: 3 x 2.5 mg tablets Condition: Wednesday Dose/Route: 5 mg Instruction: 2 x 2.5 mg tablets Condition: Wednesday (Week Two) Dose/Route: 5 mg Instruction: 2 x 2.5 mg tablets Condition: Wednesday Dose/Route: 5 mg Instruction: 2 x 2.5 mg tablets Condition: Wednesday Dose/Route: 7.5 mg Instruction: 3 x 2.5 mg tablets Condition: Wednesday Dose/Route: 5 mg Instruction: 2 x 2.5 mg tablets Condition: Dose/Route: 5 mg Instruction: 2 x 2.5 mg tablets Condition: Wednesday Dose/Route: 7.5 mg Instruction: 3 x 2.5 mg tablets Condition: Wednesday Dose/Route: 5 mg Instruction: 2 x 2.5 mg tablets Protocol Text: Adjustment Start Date: Wednesday04/13/25 INR Value: 3.0 INR Date: 04/13/25 Recheck Date: 04/20/25 Additional Instructions: cont same dosing have a green today amlodipine 10 mg tablet 10 mg PO DAILY flecainide 100 mg tablet 100 mg PO Q12H magnesium oxide 400 mg magnesium capsule 400 mg PO BID metoprolol succinate 50 mg capsule,sprinkle,ER 24hr 50 mg PO BID cholecalciferol (vitamin D3) 25 mcg (1,000 unit) capsule 25 mcg PO BID Entresto 24-26 mg tablet 1 tab PO BID Interventions: ED Discharge Assessment Last Done: 04/13/25 21:24 Discharge Date/Time: 04/13/25 21:28 Print Language: Persian
[2025-04-13 19:29] LABS: MANUAL DIFF FLAG NO
[2025-04-13 19:30] LABS: Hematocrit 41.0 % (37.0-47.0); Hemoglobin 13.8 g/dl (12.0-16.0); Imm Gran Abs Auto 0.03 X10*3/uL (0.00-0.03); Imm Gran Pct Auto 0.3 % (0.0-0.4); Lymphocytes Absolute Auto 1.7 X10*3/uL (1.2-4.9); Mean Corpuscular HGB Conc 33.7 g/dl (31.0-35.0); Mean Corpuscular Hemoglobin 29.6 pg (27.0-33.0); Mean Corpuscular Volume 88.0 fL (80.0-98.0); NRBC Abs Auto 0.000 X10*3/uL (0.0-0.012); NRBC Pct Auto 0.0 /100WBC (0.0-0.2); Platelet Count 239 X10*3/uL (160-400); Red Blood Count 4.66 X10*6/uL (4.20-5.50); White Blood Count 9.4 X10*3/uL (4.8-10.8)
--- OUTSIDE RECORDS SUMMARY | 2025-04-13 19:31 | XMS_ITS ---
Author Name [facility] Organization Unknown Results Test Name/Text Value Interpretation Date Range Source BUN/CREAT RATIO 13.5 Normal 12/25/2024 [facility] BUN 14.0 MG/DL Normal 12/25/2024 6 - 20 [facility] ANION GAP 12.0 MEQ/L Normal 12/25/2024 4 - 20 [facility] CALCIUM 8.6 MG/DL Normal 12/25/2024 8.5 - 10.5 [facility] eGFR 72.0 ML/MIN/1.73M Normal 12/25/2024 60 - [facility] SODIUM 144.0 MEQ/L Normal 12/25/2024 135 - 146 [facility] CARBON DIOXIDE 27.0 MEQ/L Normal 12/25/2024 19 - 32 [facility] GLUCOSE 86.0 MG/DL Normal 12/25/2024 70 - 99 [facility] OSMOLALITY 286.6 mOsm/kg Normal 12/25/2024 270 - 290 [facility] POTASSIUM 4.0 MEQ/L Normal 12/25/2024 3.5 - 5.4 [facility] CREATININE 1.04 MG/DL Normal 12/25/2024 0.6 - 1.3 [facility] CHLORIDE 105.0 MEQ/L Normal 12/25/2024 96 - 106 [facility] WBC 8.0 K/uL Normal 12/25/2024 4 - 10 [facility] EOSINOPHILS 1.4 % Normal 12/25/2024 [facility] HEMATOCRIT 41.2 % Normal 12/25/2024 36 - 47 [facility] BASOPHILS 0.3 % Normal 12/25/2024 [facility] # NEUTROPHILS 4.84 K/uL Normal 12/25/2024 2 - 8 [facility] PLATELET 242126.0 Normal 12/25/2024 [id number] - [id number] [facility] # MONOCYTES 0.56 K/UL Normal 12/25/2024 0.2 - 1 [facility] RDW-SD 43.2 fL Normal 12/25/2024 35 - 46 [facility] MCHC 32.5 g/dL Normal 12/25/2024 31 - 36 [facility] NUCLEATED RBC 0.0 NRBC/100 WBC Normal 12/25/2024 0 - 0 [facility] # LYMPHOCYTES 2.45 K/UL Normal 12/25/2024 0.8 - 4 [facility] RBC 4.56 MILLION/uL Normal 12/25/2024 4.3 - 5.5 [facility] # IMMATURE GRANULOCYTES 0.02 K/UL Normal 12/25/2024 0 - 0.1 [facility] # BASOPHILS 0.02 K/UL Normal 12/25/2024 0 - 0.2 [facility] MCH 29.4 pg Normal 12/25/2024 25 - 34 [facility] # NRBC 0.0 k/UL Normal 12/25/2024 0 - 0.1 [facility] IMMATURE GRANULOCYTES 0.3 % Normal 12/25/2024 [facility] NEUTROPHILS 60.4 % Normal 12/25/2024 [facility] # EOSINOPHILS 0.11 K/UL Normal 12/25/2024 0 - 0.5 [facility] MCV 90.4 fL Normal 12/25/2024 80 - 99 [facility] MONOCYTES 7.0 % Normal 12/25/2024 [facility] LYMPHOCYTES 30.6 % Normal 12/25/2024 [facility] HEMOGLOBIN 13.4 g/dL Normal 12/25/2024 12 - 16 [facility] PROTHROMBIN TIME 22.7 SECONDS Normal 12/25/2024 [facility] INR 2.0 Normal 12/25/2024 [facility] Encounters Encounter Type Encounter Reason Primary Diagnosis Location Date Ambulatory fu poc inr Unspecified atri al fibrillation [facility] 02/14/2025 Ambulatory [facility] 02/14/2025 Care Team Organization Name Specialty Phone Email Start Date End [facility] te [facility] [place] Aditya Crane Primary [facility] Joel PAZ Primary Care [facility] 02/15/2025 [facility] Royce Primary Care 2024 [facility] N/A Survey Chief N/A N/A 01/23/2025 [facility] ANGELO PAZ Primary Care [address] [facility] [place] BROOK MATIAS Primary Care 01/12/2025
[2025-04-13 19:37] LABS: INTERNATIONAL NORM RATIO 2.8 (0.9-1.1); Prothrombin Time 31.8 SEC (10.9-12.4)
[2025-04-13 19:52] LABS: Alanine Aminotransferase 166 U/L (0-31); Albumin Level 4.2 g/dL (3.5-5.0); Alkaline Phosphatase 88 U/L (39-117); Anion Gap 14 (12-20); Aspartate Amino Transferase 103 U/L (5-31); Blood Urea Nitrogen 15 mg/dL (9-16); Calcium 8.7 mg/dL (8.4-10.2); Carbon Dioxide 22 mmol/L (22-29); Chloride 111 mmol/L (96-108); Creatinine Clr Calc Pharmacy 98.3; Estimated Glomerular Filt Rate 58; Potassium 3.9 mmol/L (3.3-5.1); Sodium 143 mmol/L (135-145); Total Protein 7.0 g/dL (6.5-8.0)
[2025-04-13 21:24] VITALS: BP 148/91; PULSE 111; RESP 17; TEMP 36.8; O2SAT 97
== END 2025-04-13 21:28 | disposition home or self-care (01) ==
PROVIDERS: Physician Assistant; Emergency Provider Internal Medicine
DX: S09.90XA Unspecified injury of head, initial encounter (principal); I48.91 Unspecified atrial fibrillation; F12.90 Cannabis use, unspecified, uncomplicated; R51.9 Headache, unspecified; R42 Dizziness and giddiness; R53.1 Weakness; I48.92 Unspecified atrial flutter; X58.XXXA Exposure to other specified factors, initial encounter; Y93.9 Activity, unspecified; Y92.9 Unspecified place or not applicable; Y99.8 Other external cause status; Z79.01 Long term (current) use of anticoagulants; Z79.899 Other long term (current) drug therapy
CPT/HCPCS: 36415; 70450; 80053; 84702; 85025; 85610; 93005; 99284; 99285

== ENCOUNTER → 2025-04-13 19:14 | Outpatient (BNV) | payer MEDICAID, SELFPAY | PROVIDERS: Emergency Provider Internal Medicine; Visit Provider Internal Medicine Cardiovascular Disease | DX: I48.92 Unspecified atrial flutter (principal); I44.0 Atrioventricular block, first degree; I51.7 Cardiomegaly | CPT/HCPCS: 93010 ==

== ENCOUNTER → 2025-04-13 19:14 | Outpatient (BNV) | payer MEDICAID, SELFPAY | PROVIDERS: Emergency Provider Internal Medicine; Visit Provider Radiology Diagnostic Radiology | DX: R42 Dizziness and giddiness (principal) | CPT/HCPCS: 70450 ==

== ENCOUNTER 2025-04-17 09:11 | Emergency (ER) | payer MEDICAID, SELFPAY ==
--- OUTSIDE RECORDS SUMMARY | 2004-04-15 20:00 | XMS_ITS | Continuity of Care Document ---
Author Organization Chris Ritchie [facility] Address [address] [place] [address] Phone Care Team Providers Care Theatrical Scenic Designer Name Role Phone Z-Converted, Provider Unavailable Unavailabl e Advance Directives Directive Yes / No Effective Date File Name No Information Encounters Encounter Description Practice Location Reason(s) For Visit Diagnoses Date Provider Providers Copied on Encounter Chris Carreno [facility], [address] [place] [address] 2,[address], [place], [place], [id number], [place] tel:[phone] [facility] Elevated blood pressure reading without diagnosis [...] Record Payers Payer name Insurance type Covered democrat ID Authoriza tion(s) No Information Social History [...]
[2025-04-17] VITALS (7 sets, daily range): BP systolic 109–169; BP diastolic 60–83; PULSE 80–94; RESP 15–16; TEMP 36.1–36.6; O2SAT 96–100; BMI 51.5
--- NOTE | ~2025-04-17 | CT_ITS ---
EXAMINATION: CT ANGIOGRAM HEAD AND NECK CLINICAL INFORMATION: Headache, dizziness, anticoagulated, recent fall. COMPARISON: Normal noncontrast head CT April 13, 2025. TECHNIQUE: Noncontrast axial imaging of the head was performed. This was followed by test bolus sequences and head and neck intravenous bolus administration of 70mL of Omnipaque 350. Helical imaging was performed in the axial plane from the aortic arch to the skull vertex. The data was processed at the cardiology technologist's workstation for generation of MIP sequences. Angled MIPs and volume rendered reformatted images were also generated at an offline 3D workstation. Stenoses are assessed in accordance with NASCET criteria unless otherwise indicated. This CT examination was performed using dose optimization techniques as appropriate, variously including the following: *Automated exposure control *Adjustment of mA and/or kV according to patient size (this includes techniques or standardized protocols for targeted exams where dose is matched to indication/reason for exam; i.e. extremities or head) *Use of iterative reconstruction technique DLP: 716 mGy*cm FINDINGS: NECK CTA: -AORTIC ARCH: Normal in caliber. Mild atheromatous calcification. Three-vessel branching pattern. -GREAT VESSEL ORIGINS: Widely patent. No stenosis. -RIGHT COMMON CAROTID ARTERY: Normal in course and caliber to the level of the bifurcation. -CERVICAL RIGHT INTERNAL CAROTID ARTERY: Normal opacification without focal stenosis or occlusion. -LEFT COMMON CAROTID ARTERY: Normal in course and caliber to the level of the bifurcation. -CERVICAL LEFT INTERNAL CAROTID ARTERY: Minimal calcific atherosclerotic disease of the carotid without hemodynamically significant stenosis. -CERVICAL RIGHT VERTEBRAL ARTERY: Normal in course and caliber into the skull base. -CERVICAL LEFT VERTEBRAL ARTERY: Normal in course and caliber into the skull base. OTHER, SOFT TISSUES: No lymphadenopathy or mass. No abnormal fluid collection or soft tissue swelling. -Normal thyroid. -Imaged superior mediastinal structures normal. -Imaged lung apices clear. CTA OF THE BRAIN: -INTRACRANIAL INTERNAL CAROTID ARTERIES: No focal stenosis or occlusion. -RIGHT ANTERIOR CEREBRAL ARTERY: Normal A1 segment.. Normal arborization of the distal segments. -LEFT ANTERIOR CEREBRAL ARTERY: Normal A1 segment.. Normal arborization of the distal segments. -ANTERIOR COMMUNICATING ARTERY: Normal. -RIGHT MIDDLE CEREBRAL ARTERY: Normal M1 segment of the MCA without focal stenosis or occlusion. Normal bifurcation. Normal arborization of the distal segments. -LEFT MIDDLE CEREBRAL ARTERY: Normal M1 segment of the MCA without focal stenosis or occlusion. Normal bifurcation. Normal arborization of the distal segments. -RIGHT VERTEBRAL ARTERY V4: Normal in course and caliber. -LEFT VERTEBRAL ARTERY V4: Normal in course and caliber. -BASILAR ARTERY: Normal without focal stenosis or occlusion. Normal appearance of the proximal superior cerebellar arteries. Normal basilar tip. -RIGHT POSTERIOR CEREBRAL ARTERY: Normal P1 segment. Normal opacification of the distal RIGGER SUPERVISOR segments. -LEFT POSTERIOR CEREBRAL ARTERY: The P1 segment is diminutive. origin of the RIGGER SUPERVISOR with robust opacification of the posterior communicating artery. Normal opacification of the distal RIGGER SUPERVISOR segments. -POSTERIOR COMMUNICATING ARTERIES: Thread like on the right and not clearly seen on the left. CT/CT angio head neck IMPRESSION: CTA NECK: No hemodynamically significant stenosis. CTA HEAD: No hemodynamically significant stenosis. SONIA Farias notified via [employer]. Electronically signed by: Cm Garcia MD 04/17/2025 12:16 PM EDT
--- NOTE | 2025-04-17 09:44 | PC.NURSE ---
patient presents to the ED from home, states she fell x3 times on wednesday after smoking marijuana. patient states she has not smoked in a while and she fell. patient states she is on blood thinners for afib. patient states since her falls she has been having increased dizziness and feelings of palpitations. patient states she only feels better when she is laying down, dizziness and palpitations get worse with any movement, states she feels as if she has to sit down after any movement. patient states she still has a headache on the right posterior of her head, no bumps/abrasions noted, pupils bilat are equal and reactive to light. patient placed on tele monitor, noted to be in afib, rate 90s.
--- NOTE | 2025-04-17 10:13 | ED_ITS ---
HPI - Head Injury General Chief complaint: Head Injury Stated complaint: Head injury, dizziness/nausea Time Seen by Provider: 04/17/25 10:12 Source: patient Mode of arrival: ambulatory Limitations: no limitations History of Present Illness ED Provider: Jim Bailey PA-C HPI Narrative: 35 yo female with history of afib (dx age 22) with atrial thrombous (dx November 2024) on Coumadin and flecinide, recent multiple falls on 04/12 after smoking marijuana, seen here on 04/13 for headache and dizziness and and negative CT scan who presents to the ER for evaluation of ongoing symptoms. She reports she has had pustule dizziness and feeling like she is going to pass out when she is walking or standing for prolonged amount of time. She denies any chest pain or shortness of Breath. She has had intermittent palpitations ongoing for months. She has had a pressure-like headache around her head that is pushing downward. She reports photophobia and nausea but no vomiting. Denies a history of m igraines. Has not had a headache like this before. No fever or chills. She has been compliant with all of her cardiac medications MD Complaint: head injury, head pain and fall Onset (ago): day(s) Mechanism of Injury: fall Place: home Loss of Consciousness: yes Location of injury: frontal and temporal Severity: moderate Quality: aching Radiation: neck Associated symptoms: nausea, weakness and other Related Data Home Medications ?Medication ?Instructions ?Recorded ?Confirmed amlodipine 10 mg tablet 10 mg PO DAILY 04/13/2503/21 cholecalciferol (vitamin D3) 25 25 mcg PO BID 04/13/25 04/13/25 mcg (1,000 unit) capsule flecainide 100 mg tablet 100 mg PO Q12H 04/13/2503/21 magnesium oxide 400 mg PO BID 04/13/2504/13 metoprolol succinate 50 mg capsule 50 mg PO BID 04/13/25 sprinkle, ext. release 24 hr sacubitril 24 mg-valsartan 26 mg 1 tab PO BID 04/13/25 04/13/25 tablet (Entresto) warfarin 2.5 mg tablet 2.5 mg PO DAILY 04/13/25 Previous Rx's ?Medication ?Instructions ?Recorded nhypesjytm-xbyvirvkaogld-hcjetyye 1 tab PO Q6H PRN avril appiah #5 tabs 04/17/25 50 mg-325 mg-40 mg tablet Allergies Allergy/AdvReac Type Severity Reaction Status Date / Time bupropion Allergy Intermediate Hives Verified 04/17/25 09:18 [facility] Past Medical History Medical History Current use of anticoagulant therapy Afib Social History Social History Housing: Apartment Alcohol intake: current Alcohol intake frequency: a few times a month Patient Tobacco Use Status: Never used Tobacco Substance Use Type: Marijuana Advance Directives: No Advance Directives Information Provided: No Do you have a plan to hurt others: No 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 Current occupational exposures/hazards: No Physical Exam Vital Signs: Vital Signs: Last Vital Signs Temp 97.6 F 04/17/25 10:46 Pulse 86 04/17/25 13:51 Resp 15 04/17/25 13:51 BP 118/61 04/17/25 13:51 Pulse Ox 100 04/17/25 13:51 O2 Del Method Room Air 04/17/25 13:51 BMI result Body Mass Index 51.5 Medications Administered Discontinued Medications Generic Name Dose Route Start Last Admin Trade Name Freq PRN Reason Stop Dose Admin Acetaminophen/Butalbital/Caffeine 1 tab 04/17/25 13:01 04/17/25 13:12 Butalb/Acetamin/Caff 50/325/40 Tablet PO 04/17/25 13:02 1 tab ONCE ONE Administration Sodium Chloride 1,000 mls @ 999 mls/hr 04/17/25 11:45 04/17/25 13:12 Ns IVCONT 04/17/25 12:45 Infused .Q1H1M PAOLA Infusion Iohexol 100 ml 04/17/25 11:17 04/17/25 11:22 Iohexol 350 Mg/Ml 100 Ml Infus..Btl IV 04/17/25 11:18 100 ml ONCE ONE Administration Ondansetron HCl 4 mg 04/17/25 11:34 04/17/25 11:51 Ondansetron Hcl 4 Mg/2 Ml Vial IVPUSH 04/17/25 11:35 4 mg ONCE ONE Administration Medical Decision Making Medical Decision Making [facility] Narrative: 35-year-old female with a history of atrial fibrillation complicated by atrial thrombus, now on Coumadin, history of pacemaker, history of recent fall with lo ss of consciousness and head strike, negative CT scan 4 days ago with ongoing headache, dizziness, photophobia. No history of migraines. She has been taking her Coumadin as directed. She reports throbbing headache and postural dizziness/lightheadedness. Labs reviewed from 4 days ago. No major metabolic derangement. Orthostatic vital signs here are negative. CTA of the head and neck were performed today that is unremarkable. This is reassuring. She was given IV fluids and Zofran. Upon re-evaluation she reports ongoing headache but her dizziness is significantly improved w/ fluids. EKG with bigeminy. Patient given dose of Fioricet with resolution of her headache. She is no longer dizzy, she is feeling much better. Comfortable discharge home with outpatient follow-up with her PCP and corporate manager. We discussed importance of rest, adequate hydration. Return precautions were discussed. Stable for discharge home Differential Diagnosis Differential Diagnoses: The differential diagnosis associated with the presentation includes Delayed presentation of intracranial bleed, cerebral aneurysm, dissection, orthostatic hypotension, dehydration, migraine headache Admission/Observation Consideration of admission/observation: Escalation of care including admission/observation considered Lab Data MDM Lab Attestation statement: I reviewed the patient's lab results. Labs: Lab Results 04/17/25 Range/Units 10:45 Urine Test NEGATIVE (NEGATIVE) Independent Interpretation I performed an independent interpretation of an: EKG and CT Scan Interpretation: EKG with sinus rhythm with bigeminy, artifact is present, heart rate 82 beats per minute. prior EKG was a flutter No acute cerebral hemorrhage on CTA Radiology Impression Discussion of test interpretation with radiology: I have reviewed the radiologist's reading. External Record Review External record reviewed: Outpatient record, Prior outpatient labs and Prior outpatient radiology Prescription Management I considered prescription management with: Pain Medication Discharge Plan Discharge Clinical Impression: Headache Patient Disposition: Home, Self-Care Instructions: General Headache (ED) Additional Instructions: Rest and drink plenty of fluids. When you were changing positions, make sure do so slowly and allow your body to adapt. Follow-up with your doctor including your corporate manager. If you develop new or worsening symptoms call 911 or come back to the ER for further evaluation. CT/CT angio head neck IMPRESSION: CTA NECK: No hemodynamically significant stenosis. CTA HEAD: No hemodynamically significant stenosis. Prescriptions: New cvtzbitbpk-uriotivdfhfek-rgbe 50-325-40 mg tablet 1 tab PO Q6H PRN (Reason: headache) Qty: 5 0RF No Action warfarin 2.5 mg tablet 2.5 mg PO DAILY Protocol: Dose Management Condition: Wednesday (Week One) Dose/Route: 5 mg Instruction: 2 x 2.5 mg tablets Condition: Wednesday Dose/Route: 5 mg Instruction: 2 x 2.5 mg tablets Condition: Wednesday Dose/Route: 7.5 mg Instruction: 3 x 2.5 mg tablets Condition: Wednesday Dose/Route: 5 mg Instruction: 2 x 2.5 mg tablets Condition: Dose/Route: 5 mg Instruction: 2 x 2.5 mg tablets Condition: Wednesday Dose/Route: 7.5 mg Instruction: 3 x 2.5 mg tablets Condition: Wednesday Dose/Route: 5 mg Instruction: 2 x 2.5 mg tablets Condition: Wednesday (Week Two) Dose/Route: 5 mg Instruction: 2 x 2.5 mg tab lets Condition: Wednesday Dose/Route: 5 mg Instruction: 2 x 2.5 mg tablets Condition: Wednesday Dose/Route: 7.5 mg Instruction: 3 x 2.5 mg tablets Condition: Wednesday Dose/Route: 5 mg Instruction: 2 x 2.5 mg tablets Condition: Dose/Route: 5 mg Instruction: 2 x 2.5 mg tablets Condition: Wednesday Dose/Route: 7.5 mg Instruction: 3 x 2.5 mg tablets Condition: Wednesday Dose/Route: 5 mg Instruction: 2 x 2.5 mg tablets Protocol Text: Adjustment Start Date: Wednesday04/13/25 INR Value: 3.0 INR Date: 04/13/25 Recheck Date: 04/20/25 Additional Instructions: cont same dosing have a green today amlodipine 10 mg tablet 10 mg PO DAILY flecainide 100 mg tablet 100 mg PO Q12H magnesium oxide 400 mg magnesium capsule 400 mg PO BID metoprolol succinate 50 mg capsule,sprinkle,ER 24hr 50 mg PO BID cholecalciferol (vitamin D3) 25 mcg (1,000 unit) capsule 25 mcg PO BID Entresto 24-26 mg tablet 1 tab PO BID Referrals: Tiffany Asif MD [Primary Care Provider, Internal Medicine] Stand Alone Forms: Work/School Release Print Language: Italian
--- NOTE | 2025-04-17 10:48 | PC.NURSE ---
patient ambulated to bathroom with steady gait. IV placed in right lateral FA #[id number]
[2025-04-17 10:58] LABS: UPreg QC Valid YES
[2025-04-17] MEDS: iohexoL 350 MG/ML 100 ML INFUS..BTL IV (11:22)
--- NOTE | 2025-04-17 12:47 | ECG_ITS ---
Test Reason : PALPITATION Blood Pressure : */* mmHG Vent. Rate : 82 BPM Atrial Rate : 82 BPM P-R Int : 208 ms QRS Dur : 102 ms QT Int : 422 ms P-R-T Axes : 53 -1 26 degrees QTcB Int : 493 ms Sinus rhythm with occasional atrial-paced complexes and with frequent Premature ventricular complexes in a pattern of bigeminy Prolonged QT with ntermittent v paced complexes Abnormal ECG When compared with ECG of 13-Apr-2025 19:29, Electronic atrial pacemaker has replaced Atrial flutter ST no longer depressed in Inferior leads ST no longer depressed in Anterolateral leads T wave inversion now evident in Inferior leads T wave inversion no longer evident in Lateral leads Referred By: Alexa Bailey Electronically Signed By: NONA ZUÑIGA MD
[2025-04-17] MEDS: Butalb/Acetamin/Caff 50/325/40 TABLET 1 TAB PO (13:12)
== END 2025-04-17 14:55 | disposition home or self-care (01) ==
PROVIDERS: Physician Assistant; Emergency Provider Emergency Medicine; PCP Internal Medicine
DX: R51.9 Headache, unspecified (principal); R42 Dizziness and giddiness; Z91.81 History of falling; I48.91 Unspecified atrial fibrillation; Z79.01 Long term (current) use of anticoagulants
CPT/HCPCS: 70496; 70498; 81025; 93005; 96361; 96374; 99284; 99285; J2405; Q9967

== ENCOUNTER → 2025-04-17 10:27 | Outpatient (BNV) | payer MEDICAID, SELFPAY | PROVIDERS: Emergency Provider Emergency Medicine; PCP Internal Medicine; Visit Provider Radiology Diagnostic Radiology | DX: R42 Dizziness and giddiness (principal) | CPT/HCPCS: 70496; 70498 ==

== ENCOUNTER → 2025-04-17 12:47 | Outpatient (BNV) | payer MEDICAID, SELFPAY | PROVIDERS: Emergency Provider Emergency Medicine; PCP Internal Medicine; Visit Provider Internal Medicine Cardiovascular Disease | DX: I49.3 Ventricular premature depolarization (principal) | CPT/HCPCS: 93010 ==

== ENCOUNTER 2025-04-20 11:18 | Outpatient (AMB) | payer MEDICAID, SELFPAY ==
--- OUTSIDE RECORDS SUMMARY | 2004-04-15 20:00 | XMS_ITS | Continuity of Care Document ---
Author Organization Chris Ritchie [facility] Address [address] [place] [address] Phone Care Team Providers Care Shot Bagger Name Role Phone Z-Converted, Provider Unavailable Unavailabl e Advance Directives Directive Yes / No Effective Date File Name No Information Encounters Encounter Description Practice Location Reason(s) For Visit Diagnoses Date Provider Providers Copied on Encounter Chris Carreno [facility], [address] [place] [address] 2,[address], [place], [place], [id number], [place] tel:[phone] [facility] Elevated blood pressure reading without diagnosis [...]
[2025-04-20 11:35] LABS: Prothrombin Time Whole Bld POC 35.8 sec (11.1-13.5); ~PT, ~INR - Anti Coag Clinic 3.0 (0.9-1.1)
--- NOTE | 2025-04-20 11:44 | MHC.OFFVISCO ---
Intake Intake Visit Reasons: Anticoagulation Allergies bupropion Allergy (Intermediate, Verified 04/20/25 11:26) Hives Medication List - Last Reconciled 04/20/25 by January Looney RN amlodipine 10 mg PO DAILY uiscrbxedl-uixoibjmsdlxl-osvg 50-325-40 mg 1 tab PO Q6H PRN cholecalciferol (vitamin D3) 25 mcg PO BID flecainide 100 mg PO Q12H magnesium oxide 400 mg PO BID metoprolol succinate ER 50 mg PO BID sacubitril-valsartan 24-26 mg (Entresto) 1 tab PO BID warfarin 2.5 mg See Protocol PO DAILY Nursing Note pt 2nd visit to [facility] - on warfarin 4 months INR: 3.0 in therapeutic range Medications and supplements reviewed *She is s/p 1 week fall with bump to her head resulting in a concusion occipital area- experienced pain and dizziness - went to ER treated with butalbital - it was explained that it may raise the INR due to the acetaminophen in it, she ate a few servings of greens, She followed concussion precautions and rested. Denies any signs and symptoms of bleeding or bruising or clotting. Bleeding, bruising, clotting discussed Nutritional guidance given - have weekly greens Dose: 7.5mg x 2 days/ 5mg x 5 days F/U INR: 1 week Patient verbalizes understanding of instructions given Anti-Coag Initial Assessment Social Hx Patient Tobacco Use Status: Never used Tobacco alcohol intake: current Alcohol intake frequency: a few times a month Cardiovascular Hx: HTN, Angina, CHF, Arrhythmias (pacemaker, afib, sss), Cardiomyopathy and Other (pacemaker) Lung Disease HX: DVT/PE (blood clot right atrium) and Other (sleep apnea) Neurological Hx: Stroke/TIA (mini stroke 2011 per pt) Cancer HX: No Psych. Illness/Depression: Yes (depression/anxiety) Coding Level of Care Code Est Patient Level 1 Diagnoses Current use of anticoagulant therapy Z79.01 Assessment & Plan Assessment & Plan (1) Current use of anticoagulant therapy: Code(s): Z79.01 - [facility] (current) use of anticoagulants Category: Medical
== END 2025-04-20 11:51 | disposition home or self-care (01) ==
LOC: HO.ACS 11:18
PROVIDERS: PCP Internal Medicine; Visit Provider Internal Medicine Medical Oncology
DX: Z79.01 Long term (current) use of anticoagulants (principal)

== ENCOUNTER 2025-04-20 11:18 | Outpatient (REF) | payer MEDICAID, SELFPAY ==
[2025-04-21 10:28] LABS: Follicle Stimulating Hormone 4.6 mIU/mL
== END 2025-04-20 11:19 | disposition home or self-care (01) ==
LOC: HO.LAB 11:18
PROVIDERS: PCP Internal Medicine; Visit Provider Internal Medicine Medical Oncology
DX: E28.2 Polycystic ovarian syndrome (principal); E66.01 Morbid (severe) obesity due to excess calories; F32.5 Major depressive disorder, single episode, in full remission; I50.9 Heart failure, unspecified; L68.8 Other hypertrichosis; Z68.42 Body mass index [BMI] 45.0-49.9, adult
CPT/HCPCS: 36415; 82642; 83001; 83002; 83498; 84403; 85610; 99211

== ENCOUNTER 2025-04-30 09:57 | Outpatient (AMB) | payer MEDICAID, SELFPAY ==
--- OUTSIDE RECORDS SUMMARY | 2004-04-15 20:00 | XMS_ITS | Continuity of Care Document ---
Author Organization Chris Ritchie [facility] Address [address] [place] [address] Phone Care Team Providers Care Metals Analyst Name Role Phone Z-Converted, Provider Unavailable Unavailabl e Advance Directives Directive Yes / No Effective Date File Name No Information Encounters Encounter Description Practice Location Reason(s) For Visit Diagnoses Date Provider Providers Copied on Encounter Chris Carreno [facility], [address] [place] [address] [address], [place], [place], [id number], [place] tel:[phone] [place] [place] [facility] Elevated blood pressure reading without diagnosis [...] Record Payers Payer name Insurance type Covered republican ID Authoriza tion(s) No Information Social History [...]
[2025-04-30 10:07] LABS: Prothrombin Time Whole Bld POC 23.7 sec (11.1-13.5); ~PT, ~INR - Anti Coag Clinic 2.0 (0.9-1.1)
--- NOTE | 2025-04-30 10:11 | MHC.OFFVISCO ---
Intake Intake Visit Reasons: Anticoagulation Allergies bupropion Allergy (Intermediate, Verified 04/30/25 10:01) Hives Medication List - Last Reconciled 04/30/25 by Lachelle Dupree RN amlodipine 10 mg PO DAILY zcbvfibgxx-jrehhsihdtigg-idvu 50-325-40 mg 1 tab PO Q6H PRN cholecalciferol (vitamin D3) 25 mcg PO BID flecainide 100 mg PO Q12H magnesium oxide 400 mg PO BID metoprolol succinate ER 50 mg PO BID sacubitril-valsartan 24-26 mg (Entresto) 1 tab PO BID warfarin 2.5 mg See Protocol PO DAILY Nursing Note INR: 2.0 in therapeutic range of 2-3 Medications and supplements reviewed No changes in health, diet, medications, or supplements, Denies any signs and symptoms of bleeding or bruising or clotting. Bleeding, bruising, clotting discussed Nutritional guidance given to avoid greens today to to focus on foods that raise the INR. Food list reviewed. Dose: keep same dose of 5mg X 5 days and 7.5mg X 2 days (Tues & Fri) F/U INR: 2 weeks Patient verbalizes understanding of instructions given Anti-Coag Initial Assessment Social Hx Patient Tobacco Use Status: Never used Tobacco alcohol intake: current Alcohol intake frequency: a few times a month Cardiovascular Hx: HTN, Angina, CHF, Arrhythmias (pacemaker, afib, sss), Cardiomyopathy and Other (pacemaker) Lung Disease HX: DVT/PE (blood clot right atrium) and Other (sleep apnea) Neurological Hx: Stroke/TIA (mini stroke 2011 per pt) Cancer HX: No Psych. Illness/Depression: Yes (depression/anxiety) Coding Level of Care Code Est Patient Level 1 Diagnoses Current use of anticoagulant therapy Z79.01 Results AMB INR Fingerstick AMB INR Fingerstick 2.0 Last Edit by Lachelle Dupree RN on 04/30/25 10:06 interface delay Assessment & Plan Assessment & Plan (1) Current use of anticoagulant therapy: Code(s): Z79.01 - longterm (current) use of anticoagulants Category: Medical
== END 2025-04-30 10:14 | disposition home or self-care (01) ==
LOC: HO.ACS 09:57
PROVIDERS: PCP Internal Medicine; Visit Provider Internal Medicine Medical Oncology
DX: Z79.01 Long term (current) use of anticoagulants (principal)

== ENCOUNTER → 2025-04-30 09:57 | Outpatient (BNVA) | payer MEDICAID, SELFPAY | PROVIDERS: PCP Internal Medicine; Visit Provider Internal Medicine Medical Oncology | DX: Z79.01 Long term (current) use of anticoagulants (principal) | CPT/HCPCS: 85610; 99211 ==

== ENCOUNTER 2025-05-14 10:10 | Outpatient (AMB) | payer MEDICAID, SELFPAY ==
--- OUTSIDE RECORDS SUMMARY | 2004-04-15 20:00 | XMS_ITS | Continuity of Care Document ---
Author Organization Chris Ritchie [facility] Address [address] [place] [address] Phone Care Team Providers Care Corporate Aircraft Mechanic Name Role Phone Z-Converted, Provider Unavailable Unavailabl e Advance Directives Directive Yes / No Effective Date File Name No Information Encounters Encounter Description Practice Location Reason(s) For Visit Diagnoses Date Provider Providers Copied on Encounter Chris Carreno [facility], [address] [place] [address] [address], [place], [place], [id number], [place] tel:[phone] [facility] [facility] Elevated blood pressure reading without diagnosis [...] Comments Sex Female Smoking Status No Information Sexual Orientation Straight or heterosexual Chief Complaint And Reason For Visit No [...]
[2025-05-14 10:26] LABS: Prothrombin Time Whole Bld POC 33.3 sec (11.1-13.5); ~PT, ~INR - Anti Coag Clinic 2.8 (0.9-1.1)
--- NOTE | 2025-05-14 10:31 | MHC.OFFVISCO ---
Intake Intake Visit Reasons: Anticoagulation Allergies bupropion Allergy (Intermediate, Verified 05/14/25 10:21) Hives Medication List - Last Reconciled 05/14/25 by Lachelle Dupree RN amlodipine 10 mg PO DAILY yhbqpwqudi-owppvhtecuois-rzik 50-325-40 mg 1 tab PO Q6H PRN cholecalciferol (vitamin D3) 25 mcg PO BID flecainide 100 mg PO Q12H magnesium oxide 400 mg PO BID metoprolol succinate ER 50 mg PO BID sacubitril-valsartan 24-26 mg (Entresto) 1 tab PO BID warfarin 2.5 mg See Protocol PO DAILY Nursing Note INR: 2.8 in therapeutic range of 2-3 Medications and supplements reviewed No changes in health, diet, medications, or supplements, Denies any signs and symptoms of bleeding or bruising or clotting. Bleeding, bruising, clotting discussed Nutritional guidance given to balance foods that raise and foods that lower the INR. Food list reviewed. Dose: 5mg X 5 days and 7.5mg X 2 days (Tues & Fri) F/U INR: 3 weeks Patient verbalizes understanding of instructions given Anti-Coag Initial Assessment Social Hx Patient Tobacco Use Status: Never used Tobacco alcohol intake: current Alcohol intake frequency: a few times a month Cardiovascular Hx: HTN, Angina, CHF, Arrhythmias (pacemaker, afib, sss), Cardiomyopathy and Other (pacemaker) Lung Disease HX: DVT/PE (blood clot right atrium) and Other (sleep apnea) Neurological Hx: Stroke/TIA (mini stroke 2011 per pt) Cancer HX: No Psych. 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
== END 2025-05-14 10:35 | disposition home or self-care (01) ==
LOC: HO.ACS 10:10
PROVIDERS: PCP Internal Medicine; Visit Provider Internal Medicine Medical Oncology
DX: Z79.01 Long term (current) use of anticoagulants (principal)

== ENCOUNTER → 2025-05-14 10:10 | Outpatient (BNVA) | payer MEDICAID, SELFPAY | PROVIDERS: PCP Internal Medicine; Visit Provider Internal Medicine Medical Oncology | DX: I48.0 Paroxysmal atrial fibrillation (principal); Z79.01 Long term (current) use of anticoagulants; Z51.81 Encounter for therapeutic drug level monitoring | CPT/HCPCS: 85610; 99211 ==

== ENCOUNTER 2025-06-04 10:02 | Outpatient (AMB) | payer MEDICAID, SELFPAY ==
--- OUTSIDE RECORDS SUMMARY | 2004-04-15 20:00 | XMS_ITS | Continuity of Care Document ---
Author Organization Chris Ritchie [facility] Address [address] [place] [address] Phone Care Team Providers Care Formulator Name Role Phone Z-Converted, Provider Unavailable Unavailabl e Advance Directives Directive Yes / No Effective Date File Name No Information Encounters Encounter Description Practice Location Reason(s) For Visit Diagnoses Date Provider Providers Copied on Encounter Chris Carreno [facility], [address] [place] [address] 2,[address], [place], [place], [id number], [place] tel:[phone] [facility] Elevated blood pressure reading [...]
[2025-06-04 10:12] LABS: Prothrombin Time Whole Bld POC 13.2 sec (11.1-13.5); ~PT, ~INR - Anti Coag Clinic 1.1 (0.9-1.1)
[2025-06-04 10:15] LABS: Prothrombin Time Whole Bld POC 13.4 sec (11.1-13.5); ~PT, ~INR - Anti Coag Clinic 1.1 (0.9-1.1)
--- NOTE | 2025-06-04 10:37 | MHC.OFFVISCO ---
Intake Intake Visit Reasons: Anticoagulation Allergies bupropion Allergy (Intermediate, Verified 06/04/25 10:05) Hives Medication List - Last Reconciled 06/04/25 by January Looney RN amlodipine 10 mg PO DAILY mqhhiewtsu-ibpdgfnbmnuvj-pofn 50-325-40 mg 1 tab PO Q6H PRN cholecalciferol (vitamin D3) 25 mcg PO BID flecainide 100 mg PO Q12H magnesium oxide 400 mg PO BID metoprolol succinate ER 50 mg PO BID sacubitril-valsartan 24-26 mg (Entresto) 1 tab PO BID warfarin 2.5 mg See Protocol PO DAILY Nursing Note INR 1.1 out of therapeutic range-2.0-3.0 Medications and supplements reviewed Patient status: Pt reported she missed a dose 06/01/25 Medications or supplements: she tried a supplement berberine to help her PCOS condition - it stated it could increase risk of bleeding - she only had 2 doses but said she would stop it - she was enc to discuss with 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 She will go to ER with any stroke or clot like symptoms Patient verbalizing understanding of instructions given. CAll to PCP Dr Martinez - left msg will f/u with call Anti-Coag Initial Assessment Social Hx Patient Tobacco Use Status: Never used Tobacco alcohol intake: current Alcohol intake frequency: a few times a month Cardiovascular Hx: HTN, Angina, CHF, Arrhythmias (pacemaker, afib, sss), Cardiomyopathy and Other (pacemaker) Lung Disease HX: DVT/PE (blood clot right atrium) and Other (sleep apnea) Neurological Hx: Stroke/TIA (mini stroke 2010 per pt) Cancer HX: No Psych. 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
== END 2025-06-04 10:44 | disposition home or self-care (01) ==
LOC: HO.ACS 10:02
PROVIDERS: PCP Internal Medicine; Visit Provider Internal Medicine Medical Oncology
DX: Z79.01 Long term (current) use of anticoagulants (principal)

== ENCOUNTER → 2025-06-04 10:02 | Outpatient (BNVA) | payer MEDICAID, SELFPAY | PROVIDERS: PCP Internal Medicine; Visit Provider Internal Medicine Medical Oncology | DX: I48.19 Other persistent atrial fibrillation (principal); Z79.01 Long term (current) use of anticoagulants; Z51.81 Encounter for therapeutic drug level monitoring | CPT/HCPCS: 85610; 99211 ==

== ENCOUNTER 2025-06-06 11:07 | Outpatient (AMB) | payer MEDICAID, SELFPAY ==
[2025-06-06 11:15] LABS: Prothrombin Time Whole Bld POC 19.8 sec (11.1-13.5); ~PT, ~INR - Anti Coag Clinic 1.6 (0.9-1.1)
--- NOTE | 2025-06-06 11:25 | MHC.OFFVISCO ---
Intake Intake Visit Reasons: Anticoagulation Allergies bupropion Allergy (Intermediate, Verified 06/06/25 11:11) Hives Medication List - Last Reconciled 06/06/25 by Kirstie Gatcia RN amlodipine 10 mg PO DAILY msicmhpkcs-eiyvymoikrqes-hais 50-325-40 mg 1 tab PO Q6H PRN cholecalciferol (vitamin D3) 25 mcg PO BID flecainide 100 mg PO Q12H magnesium oxide 400 mg PO BID metoprolol succinate ER 50 mg PO BID sacubitril-valsartan 24-26 mg (Entresto) 1 tab PO BID warfarin 2.5 mg See Protocol PO DAILY Nursing Note PT.DENIES ANY CP,SOB OR SX OF CLOTTING. PT.DID NOT RECEIVE ANY LOVENOX FROM PCP REQUESTED ON 06/04 AND AGAIN ON 06/05. WILL BOOST AGAIN TODAY AND TOMORROW TO 7.5MGM AND FOLLOW-UP ON 06/12 NO GREENS 2-3 DAYS. WILL INCREASE REDS WITH TOMATOES. PT.VERB.GOOD UNDERSTANDING OF DOSING INSTR. INR REPORTED TO PCP(TARA) AT 11:32AM Anti-Coag Initial Assessment Social Hx Patient Tobacco Use Status: Never used Tobacco alcohol intake: current Alcohol intake frequency: a few times a month Cardiovascular Hx: HTN, Angina, CHF, Arrhythmias (pacemaker, afib, sss), Cardiomyopathy and Other (pacemaker) Lung Disease HX: DVT/PE (blood clot right atrium) and Other (sleep apnea) Neurological Hx: Stroke/TIA (mini stroke 2011 per pt) Cancer HX: No Psych. Illness/Depression: Yes (depression/anxiety) Coding Level of Care Code Est Patient Level 1 Diagnoses Current use of anticoagulant therapy Z79.01 Assessment & Plan Assessment & Plan (1) Current use of anticoagulant therapy: Code(s): Z79.01 - long-term (current) use of anticoagulants Category: Medical
== END 2025-06-06 11:34 | disposition home or self-care (01) ==
LOC: HO.ACS 11:07
PROVIDERS: PCP Internal Medicine; Visit Provider Internal Medicine Medical Oncology
DX: Z79.01 Long term (current) use of anticoagulants (principal)

== ENCOUNTER → 2025-06-06 11:07 | Outpatient (BNVA) | payer MEDICAID, SELFPAY | PROVIDERS: PCP Internal Medicine; Visit Provider Internal Medicine Medical Oncology | DX: I48.0 Paroxysmal atrial fibrillation (principal); Z79.01 Long term (current) use of anticoagulants; Z51.81 Encounter for therapeutic drug level monitoring | CPT/HCPCS: 85610; 99211 ==

== ENCOUNTER → 2025-06-12 11:15 | Outpatient (BNVA) | payer MEDICAID, SELFPAY | PROVIDERS: PCP Internal Medicine; Visit Provider Internal Medicine Medical Oncology | DX: I48.0 Paroxysmal atrial fibrillation (principal); Z79.01 Long term (current) use of anticoagulants; Z51.81 Encounter for therapeutic drug level monitoring | CPT/HCPCS: 85610; 99211 ==

== ENCOUNTER 2025-06-17 13:50 | Emergency (ER) | payer MEDICAID, SELFPAY ==
--- OUTSIDE RECORDS SUMMARY | 2004-04-15 20:00 | XMS_ITS | Continuity of Care Document ---
Author Organization Chris Ritchie [facility] Address [address] [place] [address] Phone Care Team Providers Care Instrument Installer Name Role Phone Z-Converted, Provider Unavailable Unavailabl e Advance Directives Directive Yes / No Effective Date File Name No Information Encounters Encounter Description Practice Location Reason(s) For Visit Diagnoses Date Provider Providers Copied on Encounter Chris Carreno [facility], [address] [place] [address] 2,[address], [place], [place], [id number], [place] tel:[phone] [facility] Elevated blood pressure reading without diagnosis [...]
--- NOTE | ~2025-06-17 | XR_ITS ---
CLINICAL HISTORY: fall, pain Exam: 1. AP, lateral, and oblique views of the left knee. 2. AP, lateral, and oblique views of the right knee. Comparison: None provided. Findings: Left knee: Bony alignment is anatomic. No acute fracture or joint effusion. Lczo-si-tpqylxfv degenerative change of the medial compartment with mild degenerative change of the patellofemoral joint. Lateral compartment is well-maintained. Right knee: Bony alignment is anatomic. No fracture. Small to moderate-sized joint effusion within the suprapatellar recess. Moderate degenerative change of the patellofemoral joint with mild degenerative change of the medial compartment. Impression: Left knee: Degenerative change as above without acute finding. Right knee: Degenerative change as above with joint effusion. This document has been electronically signed by: Guillermo Wild MD on 06/17/2025 15:43:09
--- NOTE | 2025-06-17 13:52 | ED.FALL ---
HPI - Fall General Chief Complaint: Extremity Injury, Lower Stated Complaint: fall t-3?, bilateral knee inj. on thinners Time Seen by Provider: 06/17/25 16:11 Source: patient Mode of arrival: ambulatory Limitations: no limitations History of Present Illness ED Provider: JALYN KHAN PA-C HPI Narrative: 35-year-old female with past medical history significant for atrial fibrillation with atrial thrombus, status post pacemaker, on Coumadin and flecainide presents to the ED today for evaluation of bilateral knee pain x3 days. Patient states she was walking into her bathroom when she hit the front of her right knee on the wall 3 days ago. Yesterday, reports rolling off of her couch onto her left side and struck her left knee. No head strike or LOC. Able to ambulate with mild discomfort. Reports bilateral knee pain (L>R) since, worse with ambulation/ bearing weight. No radiation of pain. She has not been taking anything at home for the pain. Decided to come to the ED for eval as she is on thinners. Denies calf pain, LE swelling, chest pain, sob, palpitations. Related Data Home Medications ?Medication ?Instructions ?Recorded ?Confirmed amlodipine 10 mg tablet 10 mg PO DAILY 04/13/25 06/12/25 cholecalciferol (vitamin D3) 25 25 mcg PO BID 04/13/25 06/12/25 mcg (1,000 unit) capsule flecainide 100 mg tablet 100 mg PO Q12H 04/13/25 06/12/25 magnesium oxide 400 mg PO BID 04/13/25 06/12/25 metoprolol succinate 50 mg capsule 50 mg PO BID 04/13/25 06/12/25 sprinkle, ext. release 24 hr sacubitril 24 mg-valsartan 26 mg 1 tab PO BID 04/13/25 06/12/25 tablet (Entresto) warfarin 2.5 mg tablet 2.5 mg PO DAILY 04/13/25 06/12/25 Previous Rx's ?Medication ?Instructions ?Recorded klsobzzknc-vyvqfdfujgtvp-xdvzayfp 1 tab PO Q6H PRN headache #5 tabs 04/17/25 50 mg-325 mg-40 mg tablet Allergies Allergy/AdvReac Type Severity Reaction Status Date / Time bupropion Allergy Intermediate Hives Verified 06/17/25 14:13 Review of Systems Review of Systems: Yes all other systems are reviewed and are negative [facility] Past Medical History Attestation statement: The following information was validated with the patient. 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 Skin: Warm, dry, intact. No rashes or lesions. Head: Normocephalic, atraumatic. EENT: Hearing is intact b/l. Conjunctiva clear. PERRLA. EOM intact. Moist mucous membranes.? Cardiac: Chest wall symmetric. RRR Lungs: Normal respiratory effort without accessory muscle use. CTA bilaterally Abdomen: Soft, non-tender, non-distended. No rebound tenderness or guarding. Positive BS x4. Back: No midline spinous or paraspinal tenderness. No step off deformity. Ext: +no overlying skin changes, swelling, deformities to bilateral knees. Full ROM intact with active and passive range of motion to bilateral knees. No significant tenderness to palpation, crepitus, deformity. 2+ popliteal pulses bilaterally. No calf tenderness. ambulating with steady gait. Neuro: AOx3. Normal speech. Course Course Course Narrative: Colleen Ashley SALES CONSULTING DIRECTOR 06/17 9544 This is a rapid medical exam. Deferred additional HPI, ROS, PE to primary provider. 35 yo female with history of afib (dx age 22) with atrial thrombous (dx November 2024), has pacemaker on Coumadin and flecainide, recent multiple falls here with complaints of right knee pain after hitting it on a wall, Wednesday had a fall hitting left knee. Now has pain in both knees. Will obtain x-rays VSS Reevaluation(s) Reevaluation #1: xrs normal. quinn wrap applied to L knee for comfort. educated on rice therapy. unlikely hemarthrosis. Patient has remained stable throughout ED visit today. Discussed worrisome signs and symptoms and when to return to the ED. All questions answered at this time. Patient is agreeable with disposition and stable for discharge. Procedures Orthopedic Splinting/Casting Injury #1: Side: left Lower Extremity Injury Location: knee Lower Extremity Immobilizer: Quinn wrap Medical Decision Making Medical Decision Making MDM Narrative: 35-year-old female with past medical history significant for atrial fibrillation with atrial thrombus, status post pacemaker, on Coumadin and flecainide presents to the ED today for evaluation of bilateral knee pain x3 days. vitals signs stable. patient is well-appearing in no acute distress. On exam, there are no overlying skin changes, swelling, deformities to bilateral knees. Full ROM intact with active and passive range of motion to bilateral knees. No significant tenderness to palpation, crepitus, deformity. 2+ popliteal pulses bilaterally. No calf tenderness. ambulating with steady gait. Differential diagnosis includes fracture, MSK sprain /strain, contusion. Exam is not concerning for hemearthrosis, septic joint, DVT. Presentation not consisted with gout/ pseudogout. Unlikely neurovascular compromise, threat to limb, compartment syndrome. Plan for xrays and disposition. Differential Diagnosis Differential Diagnoses: The differential diagnosis associated with the presentation includes as above. Admission/Observation not indicated. Independent Interpretation I performed an independent interpretation of an: Plain X-Ray Interpretation: xr b/l knees without fracture Radiology Impression Discussion of test interpretation with radiology: I have reviewed the radiologist's reading. Radiologist Impression: Procedure(s): XR Knee Francisco 4V Accession Number(s): [id number] cc: Tiffany Asif MD; Pascucci,Colleen SUPER[employer]OR [employer]~ Reason for Exam: fall, pain CLINICAL HISTORY: fall, pain Exam: 1. AP, lateral, and oblique views of the left knee. 2. AP, lateral, and oblique views of the right knee. Comparison: None provided. Findings: Left knee: Bony alignment is anatomic. No acute fracture or joint effusion. Apez-qq-popymtam degenerative change of the medial compartment with mild degenerative change of the patellofemoral joint. Lateral compartment is well-maintained. Right knee: Bony alignment is anatomic. No fracture. Small to moderate-sized joint effusion within the suprapatellar recess. Moderate degenerative change of the patellofemoral joint with mild degenerative change of the medial compartment. Impression: Left knee: Degenerative change as above without acute finding. Right knee: Degenerative change as above with joint effusion. This document has been electronically signed by: Guillermo Wild MD on 06/17/2025 15:43:09 External Record Review External record reviewed: Inpatient record Prescription Management I considered prescription management with: Pain Medication (tylenol) Chronic Conditions Patient?s care impacted by: Other (afib) Social Determinants Patient?s care significantly limited by Social Determinants of Health including: Other Social Determinant of Health Critical Care Time Critical Care Time Critical Care Time: No Discharge Plan Discharge Clinical Impression: Contusion of knee Patient Disposition: Home, Self-Care Instructions: Contusion in Adults (ED) Additional Instructions: You were evaluated in the ED today for knee pain. Your x-rays are reassuring. Utilize rice therapy/ Take Tylenol at home as needed for pain /discomfort Return with any new or worsening symptoms. In the case of an emergency call 911. Prescriptions: No Action zbglkuehbo-jwgssbdkfjbfh-lmmv 50-325-40 mg tablet 1 tab PO Q6H PRN (Reason: headache) Qty: 5 0RF warfarin 2.5 mg tablet 2.5 mg PO DAILY Protocol: Dose Management Condition: Wednesday (Week One) Dose/Route: 7.5 mg Instruction: 3 x 2.5 mg tablets Condition: Wednesday Dose/Route: 5 mg Instruction: 2 x 2.5 mg tablets Condition: Wednesday Dose/Route: 5 mg Instruction: 2 x 2.5 mg tablets Condition: Wednesday Dose/Route: 7.5 mg Instruction: 3 x 2.5 mg tablets Condition: Dose/Route: 5 mg Instruction: 2 x 2.5 mg tablets Condition: Wednesday Dose/Route: 5 mg Instruction: 2 x 2.5 mg tablets Condition: Wednesday Dose/Route: 5 mg Instruction: 2 x 2.5 mg tablets Condition: Wednesday (Week Two) Dose/Route: 7.5 mg Instruction: 3 x 2.5 mg tablets Condition: Wednesday Dose/Route: 5 mg Instruction: 2 x 2.5 mg tablets Condition: Wednesday Dose/Route: 5 mg Instruction: 2 x 2.5 mg tablets Condition: Wednesday Dose/Route: 7.5 mg Instruction: 3 x 2.5 mg tablets Condition: Dose/Route: 5 mg Instruction: 2 x 2.5 mg tablets Condition: Wednesday Dose/Route: 5 mg Instruction: 2 x 2.5 mg tablets Condition: Wednesday Dose/Route: 5 mg Instruction: 2 x 2.5 mg tablets Protocol Text: Adjustment Start Date: Wednesday06/12/25 INR Value: 2.4 INR Date: 06/12/25 Recheck Date: 06/26/25 amlodipine 10 mg tablet 10 mg PO DAILY flecainide 100 mg tablet 100 mg PO Q12H magnesium oxide 400 mg magnesium capsule 400 mg PO BID metoprolol succinate 50 mg capsule,sprinkle,ER 24hr 50 mg PO BID cholecalciferol (vitamin D3) 25 mcg (1,000 unit) capsule 25 mcg PO BID Entresto 24-26 mg tablet 1 tab PO BID Referrals: Tiffany Asif MD [Primary Care Provider, Internal Medicine] Stand Alone Forms: Work/School Release Print Language: [place]
[2025-06-17 14:11] VITALS: BP 123/60; PULSE 66; RESP 18; TEMP 36.6; O2SAT 96; BMI 51.1
[2025-06-17 16:04] VITALS: BP 114/54; PULSE 56; RESP 16; TEMP 36.6; O2SAT 96
[2025-06-17 17:26] VITALS: BP 114/54; PULSE 56; RESP 16; TEMP 36.6; O2SAT 96
== END 2025-06-17 17:26 | disposition home or self-care (01) ==
PROVIDERS: Emergency Provider Emergency Medicine Emergency Medical Services; PCP Internal Medicine
DX: S80.02XA Contusion of left knee, initial encounter (principal); S80.01XA Contusion of right knee, initial encounter; M25.562 Pain in left knee; M25.561 Pain in right knee; I48.91 Unspecified atrial fibrillation; Z79.01 Long term (current) use of anticoagulants; Z95.0 Presence of cardiac pacemaker; W17.89XA Other fall from one level to another, initial encounter; Y93.9 Activity, unspecified; Y92.89 Other specified places as the place of occurrence of the external cause; Y99.9 Unspecified external cause status
CPT/HCPCS: 73564; 99283; 99284

== ENCOUNTER → 2025-06-17 14:12 | Outpatient (BNV) | payer MEDICAID, SELFPAY | PROVIDERS: PCP Internal Medicine; Visit Provider Radiology Diagnostic Radiology | DX: M25.561 Pain in right knee (principal); M25.562 Pain in left knee | CPT/HCPCS: 73564 ==

== ENCOUNTER 2025-06-26 11:14 | Outpatient (AMB) | payer MEDICAID, SELFPAY ==
--- OUTSIDE RECORDS SUMMARY | 2004-04-15 20:00 | XMS_ITS | Continuity of Care Document ---
Author Organization Chris Ritchie [facility] Address [address] [place] [address] Phone Care Team Providers Care Diesel Engine Ii Pipe Fitter Name Role Phone Z-Converted, Provider Unavailable Unavailabl e Advance Directives Directive Yes / No Effective Date File Name No Information Encounters Encounter Description Practice Location Reason(s) For Visit Diagnoses Date Provider Providers Copied on Encounter Chris Carreno [facility], [address] [place] [address] 2,[address], [place], [place], [id number], [place] tel:[phone] [facility] Elevated blood pressure reading without diagnosis [...] Record Payers Payer name Insurance type Covered alliance party ID Authoriza tion(s) No Information Social [...]
[2025-06-26 11:27] LABS: Prothrombin Time Whole Bld POC 24.8 sec (11.1-13.5); ~PT, ~INR - Anti Coag Clinic 2.1 (0.9-1.1)
--- NOTE | 2025-06-27 21:01 | MHC.OFFVISCO ---
Intake Intake Visit Reasons: Anticoagulation Allergies bupropion Allergy (Intermediate, Verified 06/26/25 11:19) Hives Medication List - Last Reconciled 06/26/25 by January Looney RN amlodipine 10 mg PO DAILY hysiwfvetu-xceorxiqjdmtm-pnzw 50-325-40 mg 1 tab PO Q6H PRN cholecalciferol (vitamin D3) 25 mcg PO BID flecainide 100 mg PO Q12H magnesium oxide 400 mg PO BID medroxyprogesterone 10 mg PO DAILY metoprolol succinate ER 50 mg PO BID sacubitril-valsartan 24-26 mg (Entresto) 1 tab PO BID sertraline 100 mg PO QAM warfarin 2.5 mg See Protocol PO DAILY Nursing Note Note from 06/26/2025 INR: 2.1 in therapeutic range Medications and supplements reviewed *Pt on medroxyprogesterone 10mg daily - no warfarin interaction per micromedex - but is a hormone will monitor INR and patient for any effects No changes in health, diet, or supplements, Denies any signs and symptoms of bleeding or bruising or clotting. Bleeding, bruising, clotting discussed Nutritional guidance given Dose: 7.5mg x 2 days/ 5mg x 5 days F/U INR: 3 weeks Patient verbalizes understanding of instructions given Anti-Coag Initial Assessment Social Hx Patient Tobacco Use Status: Never used Tobacco alcohol intake: current Alcohol intake frequency: holidays/special occasions only Cardiovascular Hx: HTN, Angina, CHF, Arrhythmias (pacemaker, afib, sss), Cardiomyopathy and Other (pacemaker) Lung Disease HX: DVT/PE (blood clot right atrium) and Other (sleep apnea) Neurological Hx: Stroke/TIA (mini stroke 2011 per pt) Cancer HX: No Psych. Illness/Depression: Yes (depression/anxiety) Coding Level of Care Code Est Patient Level 1 Diagnoses Current use of anticoagulant therapy Z79.01 Results AMB INR Fingerstick AMB INR Fingerstick 2.1 Last Edit by January Looney RN on 06/26/25 11:29 manual entry Assessment & Plan Assessment & Plan (1) Current use of anticoagulant therapy: Code(s): Z79.01 - production lead (current) use of anticoagulants Category: Medical
== END 2025-06-26 11:33 | disposition home or self-care (01) ==
LOC: HO.ACS 11:14
PROVIDERS: PCP Internal Medicine; Visit Provider Internal Medicine Medical Oncology
DX: Z79.01 Long term (current) use of anticoagulants (principal)

== ENCOUNTER → 2025-06-26 11:14 | Outpatient (BNVA) | payer MEDICAID, SELFPAY | PROVIDERS: PCP Internal Medicine; Visit Provider Internal Medicine Medical Oncology | DX: I48.0 Paroxysmal atrial fibrillation (principal); I48.19 Other persistent atrial fibrillation; Z79.01 Long term (current) use of anticoagulants; Z51.81 Encounter for therapeutic drug level monitoring | CPT/HCPCS: 85610; 99211 ==

== ENCOUNTER 2025-07-18 10:32 | Outpatient (AMB) | payer MEDICAID, SELFPAY ==
[2025-07-18 10:44] LABS: Prothrombin Time Whole Bld POC 36.8 sec (11.1-13.5); ~PT, ~INR - Anti Coag Clinic 3.1 (0.9-1.1)
--- NOTE | 2025-07-18 10:44 | MHC.OFFVISCO ---
Intake Intake Visit Reasons: Anticoagulation Allergies bupropion Allergy (Intermediate, Verified 07/18/25 10:37) Hives Medication List - Last Reconciled 07/18/25 by Sagrario Weiss RN amlodipine 10 mg PO DAILY qjdwkpofka-rwsyywejpsrcp-keap 50-325-40 mg 1 tab PO Q6H PRN cholecalciferol (vitamin D3) 25 mcg PO BID flecainide 100 mg PO Q12H magnesium oxide 400 mg PO BID medroxyprogesterone 10 mg PO DAILY metoprolol succinate ER 50 mg PO BID sacubitril-valsartan 24-26 mg (Entresto) 1 tab PO BID sertraline 100 mg PO QAM warfarin 2.5 mg See Protocol PO DAILY Nursing Note INR: 3.1- in therapeutic range 2-3 Medications and supplements reviewed- pt states no changes No changes in health, diet, medications, or supplements, Denies any signs and symptoms of bleeding or bruising or clotting. Bleeding, bruising, clotting discussed- occ small bruising to le, instructed to call acs with any further bruising Nutritional guidance given Dose: 7.5mg x 2, 5mg x 5 F/U INR: 2 weeks Patient verbalizes understanding of instructions given pt to acs with c.o of 'feeling like she is going to pass out with exertion- has been occurring for approx one month. denies shortness of breath pt enc to go to ed for f/u, she states she has upcoming cardiology appt at [facility] [place], [place], enc to be seen sooner, and to notify pcp steven regarding her s/s Anti-Coag Initial Assessment Social Hx Patient Tobacco Use Status: Never used Tobacco alcohol intake: current Alcohol intake frequency: holidays/special occasions only Cardiovascular Hx: HTN, Angina, CHF, Arrhythmias (pacemaker, afib, sss), Cardiomyopathy and Other (pacemaker) Lung Disease HX: DVT/PE (blood clot right atrium) and Other (sleep apnea) Neurological Hx: Stroke/TIA (mini stroke 2010 per pt) Cancer HX: No Psych. Illness/Depression: Yes (depression/anxiety) Coding Level of Care Code Est Patient Level 1 Diagnoses Current use of anticoagulant therapy Z79.01 Assessment & Plan Assessment & Plan (1) Current use of anticoagulant therapy: Code(s): Z79.01 - [facility] (current) use of anticoagulants Category: Medical
== END 2025-07-18 10:53 | disposition home or self-care (01) ==
LOC: HO.ACS 10:32
PROVIDERS: PCP Internal Medicine; Visit Provider Internal Medicine Medical Oncology
DX: Z79.01 Long term (current) use of anticoagulants (principal)

== ENCOUNTER → 2025-07-18 10:32 | Outpatient (BNVA) | payer MEDICAID, SELFPAY | PROVIDERS: PCP Internal Medicine; Visit Provider Internal Medicine Medical Oncology | DX: I48.0 Paroxysmal atrial fibrillation (principal); I48.19 Other persistent atrial fibrillation; Z79.01 Long term (current) use of anticoagulants; Z51.81 Encounter for therapeutic drug level monitoring | CPT/HCPCS: 85610; 99211 ==

== ENCOUNTER 2025-07-18 11:05 | Inpatient (IN) | payer MEDICAID, SELFPAY ==
[2025-07-18] VITALS (16 sets, daily range): BP systolic 93–144; BP diastolic 56–93; PULSE 54–129; RESP 16–20; TEMP 36.1–36.8; O2SAT 95–98; BMI 48.3; BMI 49.1
--- NOTE | ~2025-07-18 | XR_ITS ---
EXAMINATION: XR CHEST CLINICAL INFORMATION: Dizziness COMPARISON: None available. TECHNIQUE: Frontal view of the chest was obtained. FINDINGS: 2-lead pacemaker with leads terminating in the right atrium and right ventricle appear stable. Lungs are clear. Heart size is within normal. There is no blunting of costophrenic angles. XR/XR chest 1V IMPRESSION: No acute disease. Electronically signed by: Cm Garcia MD 07/18/2025 12:57 PM EDT RP
--- NOTE | ~2025-07-18 | CT_ITS ---
EXAMINATION: CT HEAD WITHOUT CONTRAST CLINICAL INFORMATION: Dizziness on Coumadin COMPARISON: CT of the head on April 13, 2025 TECHNIQUE: Contiguous axial imaging was performed from the skull base to vertex without intravenous administration of contrast. This CT examination was performed using dose optimization techniques as appropriate, variously including the following: *Automated exposure control *Adjustment of mA and/or kV according to patient size (this includes techniques or standardized protocols for targeted exams where dose is matched to indication/reason for exam; i.e. extremities or head) *Use of iterative reconstruction technique FINDINGS: Brain parenchyma: No shift of midline structures. No parenchymal hemorrhage, mass effect or evidence of acute territorial infarct. Ventricles/extra-axial spaces: No hydrocephalus. No extra-axial fluid collection. Skull/Extracranial structures: No depressed skull fractures. Paranasal sinuses are clear. Bilateral orbital globes are unremarkable. Bilateral mastoid air cells are clear. CT/CT head/brain wo IV con IMPRESSION: No acute intracranial pathology. Electronically signed by: Layne Bustillo MD 07/18/2025 12:58 PM EDT
--- NOTE | 2025-07-18 11:08 | ECG_ITS ---
Test Reason : near syncope Blood Pressure : */* mmHG Vent. Rate : 115 BPM Atrial Rate : 115 BPM P-R Int : 220 ms QRS Dur : 150 ms QT Int : 318 ms P-R-T Axes : * -17 -11 degrees QTcB Int : 439 ms Artifact in tracing ?Atrial flutter Left ventricular hypertrophy with QRS widening ( R in aVL , Fidencio product ) Abnormal ECG When compared with ECG of 17-Apr-2025 13:22, Probably rhythm change Referred By: Maury Shepherd Electronically Signed By: MICHAELA GIBSON
[2025-07-18 11:48] LABS: Glucose, Whole Blood 143 mg/dL (60-115)
--- NOTE | 2025-07-18 11:52 | PC.NURSE ---
IV placed, labs drawn and sent.
[2025-07-18 11:54] LABS: MANUAL DIFF FLAG NO
[2025-07-18 12:11] LABS: Hematocrit 38.4 % (37.0-47.0); Hemoglobin 12.5 g/dl (12.0-16.0); Imm Gran Abs Auto 0.02 X10*3/uL (0.00-0.03); Imm Gran Pct Auto 0.3 % (0.0-0.4); Lymphocytes Absolute Auto 1.5 X10*3/uL (1.2-4.9); Mean Corpuscular HGB Conc 32.6 g/dl (31.0-35.0); Mean Corpuscular Hemoglobin 29.2 pg (27.0-33.0); Mean Corpuscular Volume 89.7 fL (80.0-98.0); NRBC Abs Auto 0.000 X10*3/uL (0.0-0.012); NRBC Pct Auto 0.0 /100WBC (0.0-0.2); Platelet Count 226 X10*3/uL (160-400); Red Blood Count 4.28 X10*6/uL (4.20-5.50); White Blood Count 7.8 X10*3/uL (4.8-10.8)
[2025-07-18 12:18] LABS: Anion Gap 12 (12-20); Blood Urea Nitrogen 13 mg/dL (9-16); Calcium 8.2 mg/dL (8.4-10.2); Carbon Dioxide 24 mmol/L (22-29); Chloride 111 mmol/L (96-108); Creatinine Clr Calc Pharmacy 118.4; Estimated Glomerular Filt Rate > 60; Potassium 3.5 mmol/L (3.3-5.1); Sodium 143 mmol/L (135-145)
--- NOTE | 2025-07-18 12:21 | ED.GENADULT ---
HPI - General Adult General Chief complaint: Weakness Stated complaint: dizziness Time Seen by Provider: 07/18/25 12:12 Source: patient Mode of arrival: ambulatory Limitations: no limitations History of Present Illness ED Provider: DR. Landeros HPI narrative: 35-year-old female history of paroxysmal atrial fibrillation and left atrial thrombus patient is on Coumadin for anticoagulation, use flecainide and metoprolol to control atrial fibrillation rate patient brought in from [facility] today for dizziness and near syncope with feeling palpitation and rapid heart rate. Patient takes warfarin 2.5 mg daily, amlodipine 10 mg daily, flecainide 100 mg tablet daily, metoprolol 50 mg daily. No headache, no blurry vision, no double vision, no weakness, no numbness. Patient scheduled to see a tavern operator in 2 months. Related Data Home Medications ?Medication ?Instructions ?Recorded ?Confirmed amlodipine 10 mg tablet 10 mg PO DAILY 04/13/25 07/18/25 cholecalciferol (vitamin D3) 25 25 mcg PO BID 04/13/25 07/18/25 mcg (1,000 unit) capsule flecainide 100 mg tablet 100 mg PO Q12H 04/13/25 07/18/25 magnesium oxide 400 mg PO BID 04/13/25 07/18/25 metoprolol succinate 50 mg capsule 50 mg PO BID 04/13/25 07/18/25 sprinkle, ext. release 24 hr sacubitril 24 mg-valsartan 26 mg 1 tab PO BID 04/13/25 07/18/25 tablet (Entresto) sertraline 100 mg tablet 100 mg PO DAILY 06/26/25 07/18/25 norethindrone 1.5 mg-ethinyl 1 tab PO DAILY 07/18/25 07/18/25 estradiol 30 mcg(21)/iron 75 mg(7) tablet (June FE 1.5/30 (28)) warfarin 2 mg tablet 2 mg PO MOTUTHFRSA@1800 07/18/25 07/18/25 warfarin 2 mg tablet 3 mg PO SUWE@1800 07/18/25 07/18/25 Allergies Allergy/AdvReac Type Severity Reaction Status Date / Time bupropion Allergy Intermediate Hives Verified 07/18/25 11:17 Review of Systems Review of Systems: All other systems are reviewed and are negative Constitutional: Reports as per HPI and Reports no additional constitutional complaints Eyes: Reports as per HPI and Reports no additional eye complaints Reports system reviewed and no additional complaints, except as documented Cardiovascular: Reports as per HPI and Reports no additional cardiovascular complaints Respiratory: Reports as per HPI and Reports no additional respiratory complaints Gastrointestinal: Reports as per HPI and Reports no additional gastrointestinal complaints Genitourinary: Reports no additional female genitourinary complaints Musculoskeletal: Reports no additional musculoskeletal complaints Skin/Breast: Reports system reviewed and no additional complaints, except as docu Psychiatric: Reports no additional psychiatric complaints Endocrine: Reports no additional endocrine complaints Hematologic/Lymphatic: Reports no additional hematologic/lymphatic complaints Allergic/Immunologic: Reports no additional allergic/immunologic complaints Reports system reviewed and no additional complaints, except as documented and Reports Abnormal speech present [facility] Past Medical History Medical History (Updated 07/18/25 @ 15:02 by Teresa Paz NP) Depression Current use of anticoagulant therapy Afib Surgical History (Updated 07/18/25 @ 15:03 by Teresa Paz NP) S/P placement of cardiac pacemaker Social History Social History Housing: Apartment Unable to assess alcohol history related to: Unknown Alcohol intake: current Alcohol intake frequency: holidays/special occasions only Alcohol type: beer and hard liquor Patient Tobacco Use Status: Never used Tobacco Smoked in Last 30 Days: No Use of substances other than those prescribed or required for medical reasons: Unknown Substance Use Type: Marijuana Advance Directives: No Advance Directives Information Provided: Yes 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 Current occupational exposures/hazards: No Physical Exam ED Vital Signs: Vital Signs - 24 hr 07/18/25 11:16 07/18/25 12:00 07/18/25 12:20 Temperature 98.3 F Pulse Rate 116 H 118 H 105 H Respiratory Rate 20 20 Blood Pressure 114/75 144/88 H 104/85 Pulse Oximetry 97 98 Oxygen Delivery Method Room Air Room Air 07/18/25 12:46 07/18/25 12:48 07/18/25 12:49 Temperature Pulse Rate 113 H 112 H 129 H Respiratory Rate Blood Pressure 98/67 116/67 Pulse Oximetry Oxygen Delivery Method 07/18/25 13:31 07/18/25 14:00 Temperature Pulse Rate 111 H 97 Respiratory Rate 20 Blood Pressure 135/93 H 118/66 Pulse Oximetry 96 Oxygen Delivery Method Room Air BMI result Body Mass Index 48.3 Vital signs have been reviewed and appear to be correct. Blood pressure elevated. Heart rate elevated. Respiratory rate normal. Temperature normal. Oxygen saturation normal. Appearance: Alert. Oriented X3. No acute distress. Head: Normal external exam. Normocephalic. Atraumatic. No Deras signs noted. No raccoon eyes noted Eyes: PERRLA. EOMI. Conjunctiva and sclera normal. Eyelids normal. ENT: TM's Normal. Pharynx normal. Uvula midline. Moist mucous membranes. No trismus noted. No drooling noted. No muffled voice noted. Neck: Normal inspection. Neck supple. FROM. No adenopathy. Thyroid Normal. No meningeal signs. No neck mass noted. CVS: Normal heart rate and rhythm. Heart sound normal. No murmurs noted. Pulses normal throughout. Respiratory: No respiratory distress. Painless inspiration. Breath sounds normal. No wheezes/rales/rhonchi noted. Chest nontender. No accessory muscle usage noted or decreased air movement noted. Abdomen: Soft and nontender. Bowel sounds normal in all 4 quadrants. No distention noted. No organomegaly noted. No visible injury noted. Back: No CVA tenderness. Full range of motion noted. Skin: Skin warm and dry. Normal skin color. Normal skin turgor. No rashes/lesions/lacerations noted. Extremities: No lower extremity edema. Extremities exhibit normal range of motion. Extremities nontender. Neuro: Oriented X 3. Cranial nerve exam: II-XII are grossly intact No motor deficit. No sensory deficit. Reflexes normal. Course Reevaluation(s) Reevaluation #1: Symptomatic Paroxysmal atrial fibrillation on anticoagulation needs rate control. Successful to lower rate with metoprolol IV/p.o. As per patient history left atrial thrombus and continue on Coumadin. INR today is 3.1. Time: 13:45 Medications Administered Discontinued Medications Generic Name Dose Route Start Last Admin Trade Name Freq PRN Reason Stop Dose Admin Lactated Ringer's 1,000 mls @ 999 mls/hr 07/18/25 12:30 07/18/25 13:32 Lr IV 07/18/25 13:30 Infused .Q1H1M PAOLA Infusion Metoprolol Succinate 25 mg 07/18/25 12:28 07/18/25 12:46 Metoprolol Succinate Er 25 Mg Tab.Er.24h PO 07/18/25 12:29 25 mg ONCE ONE Administration Protocol Metoprolol Tartrate 5 mg 07/18/25 12:20 07/18/25 12:30 Metoprolol Tartrate 5 Mg/5 Ml Vial IVPUSH 07/18/25 12:21 5 mg ONCE ONE Administration Protocol Medical Decision Making Differential Diagnosis Differential Diagnoses: The differential diagnosis associated with the presentation includes (Intracranial pathology, paroxysmal atrial fibrillation, dysrhythmia, electrolyte derangement, severe anemia, dehydration, ACS.) Admission/Observation Consideration of admission/observation: Escalation of care including admission/observation considered Consult Healthcare Provider Management of the patient was discussed with: Hospitalist Lab Data MDM Lab Attestation statement: I reviewed the patient's lab results. 07/18/25 11:49 07/18/25 11:49 Labs: Lab Results 07/18/25 07/18/25 Range/Units 11:44 11:49 WBC 7.8 (4.8-10.8) X10*3/uL RBC 4.28 (4.20-5.50) X10*6/uL Hgb 12.5 (12.0-16.0) g/dl Hct 38.4 (37.0-47.0) % MCV 89.7 (80.0-98.0) fL MCH 29.2 (27.0-33.0) pg MCHC 32.6 (31.0-35.0) g/dl RDW 12.9 (11.0-16.0) % Plt Count 226 (160-400) X10*3/uL MPV 10.8 (9.4-12.3) fL Immature Gran % (Auto) 0.3 (0.0-0.4) % Neut % (Auto) 73.1 H (45-73) % Lymph % (Auto) 19.0 L (20-40) % [place] % (Auto) 6.2 (2-11) % Eos % (Auto) 0.8 (0-4) % Baso % (Auto) 0.6 (0-2) % Lymph # (Auto) 1.5 (1.2-4.9) X10*3/uL [place] # (Auto) 0.5 (0.1-1.2) X10*3/uL Eos # (Auto) 0.1 (0.0-0.4) X10*3/uL Baso # (Auto) 0.1 (0.0-0.2) X10*3/uL Abs Immat Gran (auto) 0.02 (0.00-0.03) X10*3/uL Absolute Neuts (auto) 5.7 (2.0-8.3) x10*3/uL Absolute Nucleated RBC 0.000 (0.0-0.012) X10*3/uL Nucleated RBC % (auto) 0.0 (0.0-0.2) /100WBC Sodium 143 (135-145) mmol/L Potassium 3.5 (3.3-5.1) mmol/L Chloride 111 H (96-108) mmol/L Carbon Dioxide 24 (22-29) mmol/L Anion Gap 12 (12-20) BUN 13 (9-16) mg/dL Creatinine 0.90 (0.5-1.4) mg/dL Estim Creat Clear Calc 118.4 Estimated GFR > 60 POC Glucose 143 H (60-115) mg/dL Random Glucose 133 H (60-115) mg/dL Calcium 8.2 L (8.4-10.2) mg/dL Troponin I High Sens < 2.7 (<3.5-17.0) ng/L Independent Interpretation I performed an independent interpretation of an: Plain X-Ray (Chest: No acute intrathoracic pathology.) and CT Scan (Head: No acute intracranial pathology.) Radiology Impression Discussion of test interpretation with radiology: I have reviewed the radiologist's reading. Critical Care Time Critical Care Time Critical Care Time: Yes Total Critical Care Time: 60 Attestation: The patient was critically ill with a high probability of imminent or life-threatening deterioration. I spent greater than 30 minutes of discontinuous time evaluating the patient, delivering critical care at the bedside, discussing evaluating data with consultants. Critical care time does not include time spent performing separately billable procedures or teaching. Time spent performing critical care was 60 minutes. Discharge Plan Discharge Clinical Impression: Atrial fibrillation with RVR Patient Disposition: Admitted As Inpatient
[2025-07-18] MEDS: Lactated Ringers 1,000 ML 999 ML IV (12:30)
[2025-07-18 12:31] LABS: Troponin-I High Sensitivity < 2.7 ng/L (<3.5-17.0)
--- NOTE | 2025-07-18 12:35 | PC.NURSE ---
Pt to CT at this time.
[2025-07-18] MEDS: Metoprolol Succinate ER 25 MG TAB.ER.24H PO (12:46)
--- NOTE | 2025-07-18 14:51 | PHA.MEDREC ---
Addendum entered by Abbie Scott RPh 07/18/25 15:03: Reviewed by [facility] Original Note: Pharmacy Consult ? Medication Reconciliation Pharmacy has completed the medication reconciliation. Spoke with pt and she confirmed her medications. Pt confirmed she still taking Flecainide 100mg 1 Q12H and gets it filled at [facility] pharmacy; I called [facility] and they have no claims for that medication, she confirmed her Warfarin; stating she takes 2mg now on MoTuThFrSa and 3mg on Claudio&We. Pt states she has an over abundance of Metoprolol Succinate 50mg caps and Entresto 24mg-26mg tabs at home and still takes them as written; both taken 1 BID and she ran out of her Sertraline 100mg tabs 2 days ago.
--- NOTE | 2025-07-18 14:57 | PM.IMHP ---
History of Present Illness Date of Service: 07/18/25 Chief Complaint: Palpitations 35-year-old woman with a history of atrial fibrillation, pacemaker presented to the ER with complaints of dizziness. She reports that she came to the hospital to have her INR checked and suddenly felt dizzy and sat down before passing out. She reports that her AFib has been controlled but over the last several months she has had more paroxysmal atrial fibrillation and she reports that she does feel the palpitations. Apparently she does have a thrombus present so that could be why she has not been cardioverted. She denied any chest pain, nausea, vomiting, diarrhea, recent illness, sick contacts, recent travel. He recently moved from [place] about 5 months ago. Chest x-ray in the ER was negative consolidation or effusion, head CT negative for acute intracranial abnormality. INR 3.1. She received 2 doses of metoprolol when oral when IV and 1 L of IV fluid. She will be admitted for further management and treatment of presyncope and atrial fibrillation with rapid ventricular response. Review of Systems Review of Systems: Denies any recent fever chills or decrease in appetite respiratory denies any shortness of breath or cough cardiovascular see HPI gastrointestinal denies any dysphagia abdominal pain nausea vomiting or diarrhea genitourinary denies any dysuria frequency or hematuria musculoskeletal denies any joint pain or swelling neuropsych denies any weakness or seizures all other systems reviewed are negative [facility] Medical History (Updated 07/19/25 @ 10:16 by Jacques Wu MD) Depression Current use of anticoagulant therapy Afib Family History (Updated 07/19/25 @ 10:15 by Jacques Wu MD) Father No problems noted. Mother No problems noted. Surgical History S/P placement of cardiac pacemaker Social History Household Members: Other Household Members Other:: cousin Housing: Apartment Do you presently have visiting nurse or other home services: No Unable to assess alcohol history related to: Unknown Alcohol intake: current Alcohol intake frequency: holidays/special occasions only Alcohol type: beer and hard liquor Patient Tobacco Use Status: Never used Tobacco Smoked in Last 30 Days: No Use of substances other than those prescribed or required for medical reasons: Unknown Substance Use Type: Marijuana Currently Displaying Signs/Symptoms of Drug Intoxication Withdrawal: No Have you been hit, kicked, punched, or otherwise hurt by someone within the past year? 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 Current occupational exposures/hazards: No Meds Allergies Allergy/AdvReac Type Severity Reaction Status Date / Time bupropion Allergy Intermediate Hives Verified 07/18/25 11:17 Home Medications ?Medication ?Instructions ?Recorded ?Confirmed ?Last Taken ?Type amlodipine 10 mg tablet 10 mg PO DAILY 04/13/25 07/18/25 07/18/25 History cholecalciferol (vitamin D3) 25 25 mcg PO BID 04/13/25 07/18/25 07/18/25 History mcg (1,000 unit) capsule flecainide 100 mg tablet 100 mg PO Q12H 04/13/25 07/18/25 07/18/25 History magnesium oxide 400 mg PO BID 04/13/25 07/18/25 07/18/25 History metoprolol succinate 50 mg capsule 50 mg PO BID 04/13/25 07/18/25 07/18/25 History sprinkle, ext. release 24 hr sacubitril 24 mg-valsartan 26 mg 1 tab PO BID 04/13/25 07/18/25 07/18/25 History tablet (Entresto) sertraline 100 mg tablet 100 mg PO DAILY 06/26/25 07/18/25 07/16/25 History norethindrone 1.5 mg-ethinyl 1 tab PO DAILY 07/18/25 07/18/25 07/18/25 History estradiol 30 mcg(21)/iron 75 mg(7) tablet (Junel FE .02/16 (28)) warfarin 2 mg tablet 2 mg PO MOTUTHFRSA@1800 07/18/25 07/18/25 07/17/25 History warfarin 2 mg tablet 3 mg PO SUWE@1800 07/18/25 07/18/25 07/15/25 History Physical Exam Vital Signs and Narrative: Vital Signs: Last Vital Signs Temp 98.3 F 07/18/25 11:16 Pulse 97 07/18/25 14:00 Resp 20 07/18/25 14:00 BP 118/66 07/18/25 14:00 Pulse Ox 96 07/18/25 14:00 O2 Del Method Room Air 07/18/25 14:00 BMI result Body Mass Index 48.3 Appearing in no acute distress head is normocephalic atraumatic eyes pupils are PERRLA sclera is anicteric mouth throat mucous membranes are intact and moist neck is supple no lymphadenopathy, no JVD noted lung sounds irregularly irregular heart regular rate rhythm, clear S1, S2 positive bowel sounds, abdomen is soft, nontender neuro patient is alert x3, no focal deficits Results Labs 07/19/25 06:45 07/19/25 06:45 Labs: Laboratory Results - last 24 hr 07/18/25 07/18/25 11:44 11:49 MCV 89.7 MCH 29.2 MCHC 32.6 RDW 12.9 Plt Count 226 MPV 10.8 Immature Gran % (Auto) 0.3 Neut % (Auto) 73.1 H Lymph % (Auto) 19.0 L [place] % (Auto) 6.2 Eos % (Auto) 0.8 Baso % (Auto) 0.6 Lymph # (Auto) 1.5 [place] # (Auto) 0.5 Eos # (Auto) 0.1 Baso # (Auto) 0.1 Abs Immat Gran (auto) 0.02 Absolute Neuts (auto) 5.7 Absolute Nucleated RBC 0.000 Nucleated RBC % (auto) 0.0 Anion Gap 12 Estim Creat Clear Calc 118.4 Estimated GFR > 60 POC Glucose 143 H Random Glucose 133 H Calcium 8.2 L Troponin I High Sens < 2.7 Imaging Radiologist's Impressions: Impressions Head CT 07/18/25 12:34 IMPRESSION: No acute intracranial pathology. Electronically signed by: Layne Bustillo MD 07/18/2025 12:58 PM EDT RP Chest X-Ray 07/18/25 12:43 IMPRESSION: No acute disease. Electronically signed by: Cm Garcia MD 07/18/2025 12:57 PM EDT Assessment and Plan (1) Atrial fibrillation with RVR: Status: Acute Plan 35-year-old woman admitted with atrial fibrillation with rapid ventricular response with known history of AFib and presyncope Atrial fibrillation with rapid ventricular response with presyncope Patient is symptomatic from palpitations Monitor on telemetry On flecainide, metoprolol, Entresto Cardizem drip Cardiology consultation Echocardiogram Continue warfarin, check PT INR daily Pacemaker Cardiology for possible interrogation ? of RV thrombus check echo Hypertension Continue amlodipine Depression Continue sertraline Obesity class 3. BMI 48.3 Discussed importance of weight management as this may be contributing to worsening of other comorbidities DVT prophylaxis with warfarin Full code Quality Stroke Does the patient have a stroke diagnosis?: No VTE Prior VTE?: No VTE Risk Level:: Medical - moderate - high VTE Device Contraindication: Treatment Not Indicated VTE Drug Contraindication: N/A - Med Ordered
--- NOTE | 2025-07-18 16:22 | PC.NURSE ---
Teresa Paz notified that pt has been on cardizem 15ml/hr for approx 30 min, hr still > 100
[2025-07-18 16:30] LABS: INTERNATIONAL NORM RATIO 2.6 (0.9-1.1); Prothrombin Time 29.3 SEC (10.9-12.4)
[2025-07-18 17:39] LABS: Thyroid Stimulating Hormone 1.22 uIU/mL (0.32-4.0)
[2025-07-18] MEDS: Sacubitril/Valsartan 24/26 1 TAB TABLET PO (21:09)
[2025-07-18] MEDS: Metoprolol Succinate ER 50 MG TAB.ER.24H PO (21:09)
[2025-07-18] MEDS: 0.9 % Sodium Chloride Flush 3 ML SYRINGE IVFLUSH (21:37)
[2025-07-19] VITALS (8 sets, daily range): BP systolic 95–123; BP diastolic 51–66; PULSE 55–62; RESP 16–18; TEMP 36.3–37.1; O2SAT 96–97
--- NOTE | 2025-07-19 07:00 | CA_ITS ---
Transthoracic Echocardiogram Patient (Last, First, Middle): Sona Sutherland, Gender: Female Date of : 1990 Age: 35 Procedure Date: 07/19/2025 Procedure Type: Transthoracic Echocardiogram Location: ER Height: 165.1 cm Weight: 133.81 kg BSA: 2.33 m2 Heart Rate: 61 bpm BP: 123 / 66 mmHg Plate Put In Worker: KEISHA Referring MD: Teresa Paz NP Symptoms: afib rvr Study Quality: Adequate ECG Rhythm: Sinus Conclusions: - The left ventricular systolic function is low normal. The visually estimated ejection fraction is between 50-55%. - There is mild to moderate tricuspid valve regurgitation. Findings Left Ventricle Normal left ventricular cavity size. There is normal left ventricular wall thickness. The left ventricular systolic function is low normal. The visually estimated ejection fraction is between 50-55%. Diastolic function is normal for age. Right Ventricle Normal right ventricular cavity size. There is low normal right ventricular systolic function. Atria Both atria are normal in size. Aortic Valve There is a normal trileaflet aortic valve. There is no aortic valve stenosis. There is no aortic valve regurgitation. Mitral Valve The mitral valve appears normal. There is mild mitral valve regurgitation. There is no mitral valve stenosis. Pulmonic Valve The pulmonic valve is likely normal. Tricuspid Valve There is mild to moderate tricuspid valve regurgitation. There is no evidence of pulmonary hypertension. Great Vessels The asc aorta and aortic arch are normal in size. Venous The inferior vena cava is mildly dilated and collapses greater than 50% with inspiration. Pericardium/Pleural There is no evidence of pericardial effusion. Prior Study Comparison No prior study available for comparison. Measurements 2D Linear Measurements IVSd: 0.95 0.6-0.9/0.6-1.0 cm LVIDd: 5.28 3.9-5.3/4.2-5.9 cm LVIDd Index: 2.27 2.4-3.2/2.2-3.1 cm/m2 LVIDs: 3.85 2.0-3.6 cm LVPWd: 1.08 0.7-1.1 cm LA Diam: 4.00 2.7-3.8/3.0-4.0 cm LAIDs Index: 1.72 1.5-2.3 cm/m2 LV Mass: 252.66 67-162/88-224 g LV Mass Index: 108.44 43-95/49-115 g/m2 LVOT Diam: 2.20 3.0+(-)1.3 cm 2D Systolic Function EF 4C: 54.80 >55% EF 2C: 60.90 >55% EF BiP: 58.70 >55% Mitral Valve MV Pk E: 1.10 MV Decel Time: 183.00 E'Lateral: 13.40 E'Medial: 8.63 E/E' Med: 12.70 E/E' Lat: 8.20 PHT: 54.00 MVA PHT: 4.07 Decel Kimball: 6.05 Aortic Valve AoV Pk Sidney: 1.21 AoV Mn Sidney: 0.85 AoV VTI: 0.27 AoV Pk Grad: 6.00 Aov Mn Grad: 3.00 OMAR Cont.VTI: 2.55 LVOT LVOT Pk Sidney: 0.82 LVOT Mn Sidney: 0.59 LVOT VTI: 0.18 LVOT Pk Grad: 3.00 LVOT Mn Grad: 2.00 LVOT Diam: 2.20 LVOT Area: 3.80 Diastolic Function MV Pk E: 1.10 E'Medial: 8.63 E/E' Med: 12.70 E' Laterial: 13.40 E/E' Lat: 8.20 Right Ventricle TAPSE (mm): 19.50 TVS' Sidney: 8.92 Tricuspid Valve TR Pk Sidney: 2.64 TR Pk Grad: 28.00 RA Press: 8.00 RVSP: 36.00 Great Vessels Aorta Sinus of Valsalva: 2.80 2.0-3.5 cm Ao Asc: 2.60 2.1-3.4 cm Ao Arch: 2.30 Pulmonary Veins Pulm Vein S/D 1.20 Pulmonary Valve PV Pk Sidney: 0.75 Peak PV Grad: 2.00 Updated in Other Vendor System with Status of Final Jacques Wu MD electronically signed on 07/19/2025 11:31:09 AM with status of Final
[2025-07-19 07:15] LABS: MANUAL DIFF FLAG NO
[2025-07-19 07:28] LABS: INTERNATIONAL NORM RATIO 2.4 (0.9-1.1); Prothrombin Time 27.7 SEC (10.9-12.4)
[2025-07-19 07:29] LABS: Hematocrit 34.8 % (37.0-47.0); Hemoglobin 11.2 g/dl (12.0-16.0); Imm Gran Abs Auto 0.02 X10*3/uL (0.00-0.03); Imm Gran Pct Auto 0.2 % (0.0-0.4); Lymphocytes Absolute Auto 2.7 X10*3/uL (1.2-4.9); Mean Corpuscular HGB Conc 32.2 g/dl (31.0-35.0); Mean Corpuscular Hemoglobin 29.3 pg (27.0-33.0); Mean Corpuscular Volume 91.1 fL (80.0-98.0); NRBC Abs Auto 0.000 X10*3/uL (0.0-0.012); NRBC Pct Auto 0.0 /100WBC (0.0-0.2); Platelet Count 243 X10*3/uL (160-400); Red Blood Count 3.82 X10*6/uL (4.20-5.50); White Blood Count 9.3 X10*3/uL (4.8-10.8)
[2025-07-19 07:35] LABS: Alanine Aminotransferase 83 U/L (0-31); Albumin Level 3.6 g/dL (3.5-5.0); Alkaline Phosphatase 75 U/L (39-117); Anion Gap 12 (12-20); Aspartate Amino Transferase 38 U/L (5-31); Blood Urea Nitrogen 14 mg/dL (9-16); Calcium 8.3 mg/dL (8.4-10.2); Carbon Dioxide 23 mmol/L (22-29); Chloride 111 mmol/L (96-108); Creatinine Clr Calc Pharmacy 97.1; Estimated Glomerular Filt Rate 56; Magnesium 2.1 mg/dL (1.6-2.6); Potassium 4.0 mmol/L (3.3-5.1); Sodium 142 mmol/L (135-145); Total Protein 6.3 g/dL (6.5-8.0)
[2025-07-19 07:38] LABS: NT Pro B Type Natriuretic Pept 260.9 pg/mL (<300)
[2025-07-19] MEDS: 0.9 % Sodium Chloride Flush 3 ML SYRINGE IVFLUSH ×3 (08:22→21:25)
--- NOTE | 2025-07-19 08:46 | MHC.CM.PN ---
Addendum entered by Magy Brooks, RN 07/19/25 09:54: EMR REVIEWED, PT ADMITTED W/A FIB W/RVR, PRESYNCOPE, CM MET W/PT WHO REPORTS SHE LIVES W/HER COUSIN, IS FULLY INDEP W/CARE, NO DME/SERVICES, GOAL FOR DC IS HOME ONCE MEDICALLY CLEARED. PT VERIFIES PCP IS DR. DAVIS, PT EDUCATED ON AND COMPLETES A HCP NAMING HER SISTER KYREE BROWNE [phone], HER [facility] AND SISTER GRACE BROWNE [phone] HER ALTERNATE, PT PROVIDED W/EDUCATIONAL HANDOUT, ORIGINAL AND COPY, COPY UPLOADED TO [facility] AND PLACED IN CHART. Original Note: CM ATTEMPTED TO MEET W/PT HOWEVER PT HAVING ECHO, CM TO REVISIT.
[2025-07-19 09:51] LABS: INTERNATIONAL NORM RATIO 2.4 (0.9-1.1); Prothrombin Time 27.7 SEC (10.9-12.4)
--- NOTE | 2025-07-19 10:12 | PM.CNCAR ---
History of Present Illness History of Present Illness Date of Service: 07/19/25 Chief complaint: atrial fibrillation w/ rapid ventricular response Narrative: This is a cardiology consultation regarding atrial fibrillation. 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 She has relocated here. History of morbid obesity. It seems that she has had a pacemaker for almost 14 years or so. Few years back, she has been diagnosed with atrial fibrillation. Listed meds include flecainide, metoprolol, Entresto and warfarin. It seems that she came to the hospital mainly to have an INR check and then in that instance, she felt dizzy. She has also been having frequent palpitations for the last few months. Any case, she was seen in the ER and then thought to be in atrial fibrillation rapid rate and then she was admitted. Per notes, she was put on Cardizem drip. Currently, she seems to be A paced. Review of Systems Review of Systems: Yes all other systems are reviewed and are negative Constitutional: Constitutional: Reports as per HPI and Reports no additional constitutional complaints Eyes: Eyes: Reports as per HPI and Denies no additional eye complaints ENT: Denies system reviewed and no additional complaints, except as documented and Reports as per HPI Cardiovascular: Cardiovascular: Reports as per HPI, Reports no additional cardiovascular complaints, Denies acrocyanosis, Denies cool extremities, Denies chest pain, Denies leg edema, Reports lightheadedness, Reports palpitations and Denies dyspnea Respiratory: Respiratory: Reports as per HPI, Denies no additional respiratory complaints and Denies dyspnea Gastrointestinal: Gastrointestinal: Reports as per HPI and Denies no additional gastrointestinal complaints Genitourinary: Genitourinary: Reports as per HPI Musculoskeletal: Musculoskeletal: Reports no additional musculoskeletal complaints and Reports as per HPI Integumentary/Breasts: Skin/Breast: Reports system reviewed and no additional complaints, except as docu Neurologic: Reports system reviewed and no additional complaints, except as documented and Reports as per HPI Psychiatric: Psychiatric: Reports no additional psychiatric complaints and Reports as per HPI Endocrine: Endocrine: Reports no additional endocrine complaints, Reports as per HPI and Reports palpitations Hematologic/Lymphatic: Hematologic/Lymphatic: Reports no additional hematologic/lymphatic complaints and Reports as per HPI Allergic/Immunologic: Allergic/Immunologic: Reports no additional allergic/immunologic complaints and Reports as per HPI [facility] Past Medical History Medical History (Updated 07/19/25 @ 10:16 by Jacques Wu MD) Depression Current use of anticoagulant therapy Afib Family History Family History Father No problems noted. Mother No problems noted. Surgical History Surgical History S/P placement of cardiac pacemaker Social History Social History Household Members: Other Household Members Other:: cousin Housing: Apartment Do you presently have visiting nurse or other home services: No Unable to assess alcohol history related to: Unknown Alcohol intake: current Alcohol intake frequency: holidays/special occasions only Alcohol type: beer and hard liquor Patient Tobacco Use Status: Never used Tobacco Smoked in Last 30 Days: No Use of substances other than those prescribed or required for medical reasons: Unknown Substance Use Type: Marijuana Currently Displaying Signs/Symptoms of Drug Intoxication Withdrawal: No Have you been hit, kicked, punched, or otherwise hurt by someone within the past year? 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 Current occupational exposures/hazards: No Meds Allergies Allergy/AdvReac Type Severity Reaction Status Date / Time bupropion Allergy Intermediate Hives Verified 07/18/25 11:17 Active Medications: Current Medications Acetaminophen (Acetaminophen 325 Mg Tablet) 650 mg PO Q6H PRN PRN Reason: Pain, Mild 1-3,fever,headache Last Admin: 07/19/25 09:23 Dose: 650 mg Amlodipine Besylate (Amlodipine Besylate 10 Mg Tablet) 10 mg PO DAILY [facility]; Protocol On Hold: 07/19/25 09:19 Last Admin: 07/19/25 09:21 Dose: Not Given Calcium Carbonate (Calcium Carbonate 750 Mg Tab.Chew) 750 mg PO Q4H PRN PRN Reason: Heartburn Flecainide Acetate (Flecainide Acetate 50 Mg Tablet) 100 mg PO Q12H [facility] Last Admin: 07/19/25 05:31 Dose: 100 mg Magnesium Hydroxide (Milk Of Magnesia 30 Ml Oral.Susp) 30 ml PO DAILY PRN PRN Reason: Constipation Magnesium Oxide (Magnesium Oxide 400 Mg Tablet) 400 mg PO BID [facility] Last Admin: 07/19/25 08:22 Dose: 400 mg Melatonin (Melatonin 3 Mg Tablet) 6 mg PO BEDTIME PRN PRN Reason: Insomnia Metoprolol Succinate (Metoprolol Succinate Er 50 Mg Tab.Er.24h) 50 mg PO BID [facility]; Protocol Last Admin: 07/18/25 21:09 Dose: 50 mg Ondansetron HCl (Ondansetron Hcl 4 Mg/2 Ml Vial) 4 mg IVPUSH Q8H PRN PRN Reason: Nausea and Vomiting Sacubitril/Valsartan (Sacubitril/Valsartan 1 Tab Tablet) 1 tab PO BID [facility]; Protocol Last Admin: 07/19/25 09:20 Dose: Not Given Sertraline HCl (Sertraline Hcl 100 Mg Tablet) 100 mg PO DAILY [facility] Last Admin: 07/19/25 08:22 Dose: 100 mg Sodium Chloride (0.9 % Sodium Chloride Flush 3 Ml Syringe) 3 ml IVFLUSH QSHIFT [facility] Last Admin: 07/19/25 08:22 Dose: 3 ml Vitamin D (Cholecalciferol (Vitamin D3) 25 Mcg Tablet) 25 mcg PO BID [facility] Last Admin: 07/19/25 08:22 Dose: 25 mcg Warfarin Sodium (Warfarin Sodium 2 Mg Tablet) 2 mg PO MOTUTHFRSA@1800 [facility] Warfarin Sodium (Warfarin Sodium 3 Mg Tablet) 3 mg PO SUWE@1800 [facility] Last Admin: 07/18/25 18:30 Dose: 3 mg Home Medications ?Medication ?Instructions ?Recorded ?Confirmed ?Last Taken ?Type amlodipine 10 mg tablet 10 mg PO DAILY 04/13/25 07/18/25 07/18/25 History cholecalciferol (vitamin D3) 25 25 mcg PO BID 04/13/25 07/18/25 07/18/25 History mcg (1,000 unit) capsule flecainide 100 mg tablet 100 mg PO Q12H 04/13/25 07/18/25 07/18/25 History magnesium oxide 400 mg PO BID 04/13/25 07/18/25 07/18/25 History metoprolol succinate 50 mg capsule 50 mg PO BID 04/13/25 07/18/25 07/18/25 History sprinkle, ext. release 24 hr sacubitril 24 mg-valsartan 26 mg 1 tab PO BID 04/13/25 07/18/25 07/18/25 History tablet (Entresto) sertraline 100 mg tablet 100 mg PO DAILY 06/26/25 07/18/25 07/16/25 History norethindrone 1.5 mg-ethinyl 1 tab PO DAILY 07/18/25 07/18/25 07/18/25 History estradiol 30 mcg(21)/iron 75 mg(7) tablet (Junel FE ()) warfarin 2 mg tablet 2 mg PO MOTUTHFRSA@1800 07/18/25 07/18/25 07/17/25 History warfarin 2 mg tablet 3 mg PO SUWE@1800 07/18/25 07/18/25 07/15/25 History Physical Exam Vital Signs: Vital Signs: Last Vital Signs Temp 98.8 F 07/19/25 08:00 Pulse 57 07/19/25 08:00 Resp 18 07/19/25 08:00 BP 98/53 L 07/19/25 08:00 Pulse Ox 97 07/19/25 08:00 O2 Del Method Room Air 07/19/25 08:00 BMI result Body Mass Index 49.1 Const: General: comfortable and no acute distress Orientation/consciousness: patient oriented x3 HEENT: Other: Unremarkable Head: Yes normal to inspection Neck: Neck: Yes normal visual inspection Chest: Chest palpation & inspection: normal inspection of the chest Resp: Auscultation: clear to auscultation bilaterally Cardio: Palpation: normal PMI Heart sounds: S1 normal heart sound present, S2 normal heart sound present, no gallops, no murmurs and no rubs GI: Palpation (GI): Soft to palpation Back/Spine/Pelvis: Other: unremarkable Skin: General skin exam: no rashes or lesions noted Neuro: General: patient oriented x3 Extrem: General: Yes normal to inspection Psych: Mental Status: mental status grossly normal Objective Labs and Meds 07/19/25 06:45 07/19/25 06:45 Lab results: Laboratory Results - last 24 hr 07/18/25 07/18/25 07/18/25 11:44 11:49 16:12 WBC 7.8 RBC 4.28 Hgb 12.5 Hct 38.4 MCV 89.7 MCH 29.2 MCHC 32.6 RDW 12.9 Plt Count 226 MPV 10.8 Immature Gran % (Auto) 0.3 Neut % (Auto) 73.1 H Lymph % (Auto) 19.0 L [place] % (Auto) 6.2 Eos % (Auto) 0.8 Baso % (Auto) 0.6 Lymph # (Auto) 1.5 [place] # (Auto) 0.5 Eos # (Auto) 0.1 Baso # (Auto) 0.1 Abs Immat Gran (auto) 0.02 Absolute Neuts (auto) 5.7 Absolute Nucleated RBC 0.000 Nucleated RBC % (auto) 0.0 PT 29.3 H INR 2.6 H Sodium 143 Potassium 3.5 Chloride 111 H Carbon Dioxide 24 Anion Gap 12 BUN 13 Creatinine 0.90 Estim Creat Clear Calc 118.4 Estimated GFR > 60 POC Glucose 143 H Random Glucose 133 H Calcium 8.2 L Magnesium Total Bilirubin AST ALT Alkaline Phosphatase Troponin I High Sens < 2.7 NT-Pro-B Natriuret Pep Total Protein Albumin TSH 1.22 07/19/25 07/19/25 06:45 09:08 WBC 9.3 RBC 3.82 L Hgb 11.2 L Hct 34.8 L MCV 91.1 MCH 29.3 MCHC 32.2 RDW 13.2 Plt Count 243 MPV 11.2 Immature Gran % (Auto) 0.2 Neut % (Auto) 61.3 Lymph % (Auto) 29.3 [place] % (Auto) 7.9 Eos % (Auto) 0.8 Baso % (Auto) 0.5 Lymph # (Auto) 2.7 [place] # (Auto) 0.7 Eos # (Auto) 0.1 Baso # (Auto) 0.1 Abs Immat Gran (auto) 0.02 Absolute Neuts (auto) 5.7 Absolute Nucleated RBC 0.000 Nucleated RBC % (auto) 0.0 PT 27.7 H 27.7 H INR 2.4 H 2.4 H Sodium 142 Potassium 4.0 Chloride 111 H Carbon Dioxide 23 Anion Gap 12 BUN 14 Creatinine 1.11 Estim Creat Clear Calc 97.1 Estimated GFR 56 POC Glucose Random Glucose 82 Calcium 8.3 L Magnesium 2.1 Total Bilirubin 0.6 AST 38 H ALT 83 H Alkaline Phosphatase 75 Troponin I High Sens NT-Pro-B Natriuret Pep 260.9 Total Protein 6.3 L Albumin 3.6 TSH ECG Interpretation: Admission EKG shows atrial flutter at a rate of 115/Min. Left ventricular hypertrophy with QRS widening. Imaging Radiologist's impression: Impressions Head CT 07/18/25 12:34 IMPRESSION: No acute intracranial pathology. Electronically signed by: Layne Bustillo MD 07/18/2025 12:58 PM EDT RP Chest X-Ray 07/18/25 12:43 IMPRESSION: No acute disease. Electronically signed by: Cm Garcia MD 07/18/2025 12:57 PM EDT RP Assessment and Plan (1) Atrial flutter with rapid ventricular response: Status: Acute Plan History of cardiomyopathy, pacemaker implant, atrial flutter versus fibrillation history. Admission EKG likely atrial flutter with rapid rate but now atrial paced. We will need to get an echocardiogram for LV function evaluation. We will need to also get old cardiology notes from [place] (requested company secretary) Pacemaker check. For medications, continue her usual home regimen for now until review of records. We will follow up with you. Procedures Date of Service Date of Service: 07/19/25
--- NOTE | 2025-07-19 14:23 | PC.NURSE ---
HR consistent 55-60 , staying more below 60 beats per minutes. Metoprolol 50 mg po not administered in am as per DR. Flannery instructions , MD is decreasing metoprolol dose to Metoprolol 25 mg BID
--- NOTE | 2025-07-19 15:15 | P.PNIM_ITS ---
Subjective Subjective Date of Service: 07/19/25 Interval History: afib with rvr Review of Systems now nsr ,hr improving still feels weak Review of Systems: Yes all other systems are reviewed and are negative Physical Exam 2 Exam: Exam: Appearance: Alert.? Oriented X3.? cvs: rrr, [id number] . res: clear to auscultation ,no rhonchii or wheezing abd: no rebound or guarding ,nt, bs present. ext pulses present , no cyanosis . neuro: axo3 , nonfocal. Vital Signs: Vital Signs: Last Vital Signs Temp 97.6 F 07/19/25 11:54 Pulse 61 07/19/25 11:54 Resp 18 07/19/25 11:54 BP 95/51 L 07/19/25 11:54 Pulse Ox 97 07/19/25 11:54 O2 Del Method Room Air 07/19/25 11:54 BMI result Body Mass Index 49.1 Objective Data Active Medications Acetaminophen (Acetaminophen 325 Mg Tablet) 650 mg PO Q6H PRN PRN Reason: Pain, Mild 1-3,fever,headache Last Admin: 07/19/25 09:23 Dose: 650 mg Documented By: RAGHAV Amlodipine Besylate (Amlodipine Besylate 10 Mg Tablet) 10 mg PO DAILY [facility]; Protocol On Hold: 07/19/25 09:19 Last Admin: 07/19/25 09:21 Dose: Not Given Documented By: RAGHAV Non-Admin Reason: Physician Held Med Calcium Carbonate (Calcium Carbonate 750 Mg Tab.Chew) 750 mg PO Q4H PRN PRN Reason: Heartburn Flecainide Acetate (Flecainide Acetate 50 Mg Tablet) 100 mg PO Q12H [facility] Last Admin: 07/19/25 05:31 Dose: 100 mg Documented By: NATHAN Magnesium Hydroxide (Milk Of Magnesia 30 Ml Oral.Susp) 30 ml PO DAILY PRN PRN Reason: Constipation Magnesium Oxide (Magnesium Oxide 400 Mg Tablet) 400 mg PO BID [facility] Last Admin: 07/19/25 08:22 Dose: 400 mg Documented By: RAGHAV Melatonin (Melatonin 3 Mg Tablet) 6 mg PO BEDTIME PRN PRN Reason: Insomnia Metoprolol Succinate (Metoprolol Succinate Er 50 Mg Tab.Er.24h) 50 mg PO BID [facility]; Protocol On Hold: 07/19/25 14:23 Last Admin: 07/19/25 14:27 Dose: Not Given Documented By: RAGHAV Non-Admin Reason: Physician Held Med Metoprolol Tartrate (Metoprolol Tartrate 25 Mg Tablet) 25 mg PO BID [facility]; Protocol Ondansetron HCl (Ondansetron Hcl 4 Mg/2 Ml Vial) 4 mg IVPUSH Q8H PRN PRN Reason: Nausea and Vomiting Sacubitril/Valsartan (Sacubitril/Valsartan 1 Tab Tablet) 1 tab PO BID [facility]; Protocol Last Admin: 07/19/25 09:20 Dose: Not Given Documented By: RAGHAV Non-Admin Reason: Physician Held Med Sertraline HCl (Sertraline Hcl 100 Mg Tablet) 100 mg PO DAILY [facility] Last Admin: 07/19/25 08:22 Dose: 100 mg Documented By: RAGHAV Sodium Chloride (0.9 % Sodium Chloride Flush 3 Ml Syringe) 3 ml IVFLUSH QSHIFT [facility] Last Admin: 07/19/25 08:22 Dose: 3 ml Documented By: RAGHAV Vitamin D (Cholecalciferol (Vitamin D3) 25 Mcg Tablet) 25 mcg PO BID [facility] Last Admin: 07/19/25 08:22 Dose: 25 mcg Documented By: RAGHAV Warfarin Sodium (Warfarin Sodium 2 Mg Tablet) 2 mg PO MOTUTHFRSA@1800 [facility] Warfarin Sodium (Warfarin Sodium 3 Mg Tablet) 3 mg PO SUWE@1800 [facility] Last Admin: 07/18/25 18:30 Dose: 3 mg Documented By: NICKOLAS Labs 07/19/25 06:45 07/19/25 06:45 Labs: Laboratory Results - last 24 hr 07/18/25 07/18/25 07/19/25 11:49 16:12 06:45 MCV 91.1 MCH 29.3 MCHC 32.2 RDW 13.2 Plt Count 243 MPV 11.2 Immature Gran % (Auto) 0.2 Neut % (Auto) 61.3 Lymph % (Auto) 29.3 [place] % (Auto) 7.9 Eos % (Auto) 0.8 Baso % (Auto) 0.5 Lymph # (Auto) 2.7 [place] # (Auto) 0.7 Eos # (Auto) 0.1 Baso # (Auto) 0.1 Abs Immat Gran (auto) 0.02 Absolute Neuts (auto) 5.7 Absolute Nucleated RBC 0.000 Nucleated RBC % (auto) 0.0 PT 29.3 H 27.7 H INR 2.6 H 2.4 H Anion Gap 12 Estim Creat Clear Calc 97.1 Estimated GFR 56 Random Glucose 82 Calcium 8.3 L Magnesium 2.1 Total Bilirubin 0.6 AST 38 H ALT 83 H Alkaline Phosphatase 75 NT-Pro-B Natriuret Pep 260.9 Total Protein 6.3 L Albumin 3.6 TSH 1.22 07/19/25 09:08 MCV MCH MCHC RDW Plt Count MPV Immature Gran % (Auto) Neut % (Auto) Lymph % (Auto) [place] % (Auto) Eos % (Auto) Baso % (Auto) Lymph # (Auto) [place] # (Auto) Eos # (Auto) Baso # (Auto) Abs Immat Gran (auto) Absolute Neuts (auto) Absolute Nucleated RBC Nucleated RBC % (auto) PT 27.7 H INR 2.4 H Anion Gap Estim Creat Clear Calc Estimated GFR Random Glucose Calcium Magnesium Total Bilirubin AST ALT Alkaline Phosphatase NT-Pro-B Natriuret Pep Total Protein Albumin TSH Assessment and Plan (1) Afib: Status: Acute Assessment and Plan: 35-year-old woman admitted with atrial fibrillation with rapid ventricular response with known history of AFib and presyncope Atrial fibrillation with rapid ventricular response with presyncope Patient is symptomatic from palpitations Monitor on telemetry On flecainide, metoprolol. hold Cardizem drip ,Echocardiogram NSR now, and softer blood pressure hold off Entresto, cutdown metoprolol to 25 b.i.d. Cardiology eval noted - echo ,med adjustments as above .need cardiac workup from [place]. Continue warfarin, inr is 2.4. Pacemaker Cardiology for possible pacemaker interrogation Hypertension Continue amlodipine Depression Continue sertraline Obesity class 3. BMI 48.3 . encouraged to lose weight. Discussed importance of weight management as this may be contributing to worsening of other comorbidities. ongoing need -Atrial fibrillation with rapid ventricular response with presyncope: need tele monitering ,pacemaker interrogation ,cardiac workup, medication adjustment as above. Quality Stroke Does the patient have a stroke diagnosis?: No VTE Prior VTE?: No VTE Risk Level:: Medical - moderate - high VTE Device Contraindication: Treatment Not Indicated VTE Drug Contraindication: N/A - Med Ordered
[2025-07-19] MEDS: Sacubitril/Valsartan 24/26 1 TAB TABLET PO (21:22)
[2025-07-20 03:10] VITALS: BP 118/70; PULSE 52; RESP 16; TEMP 36.4; O2SAT 96
[2025-07-20 07:50] LABS: INTERNATIONAL NORM RATIO 2.0 (0.9-1.1); Prothrombin Time 22.7 SEC (10.9-12.4)
[2025-07-20 08:00] VITALS: BP 112/63; PULSE 97; RESP 18; TEMP 36.6; O2SAT 98
[2025-07-20] MEDS: Sacubitril/Valsartan 24/26 1 TAB TABLET PO (09:13)
[2025-07-20] MEDS: 0.9 % Sodium Chloride Flush 3 ML SYRINGE IVFLUSH (09:14)
--- NOTE | 2025-07-20 11:04 | PM.PNCARD ---
Subjective Subjective Date of Service: 07/20/25 Interval history: Patient states she feels fine. Remains in sinus rhythm. Review of Systems Review of Systems Yes all other systems are reviewed and are negative Constitutional: Reports as per HPI and Reports no additional constitutional complaints Eyes: Reports as per HPI and Denies no additional eye complaints Denies system reviewed and no additional complaints, except as documented and Reports as per HPI Cardiovascular: Reports as per HPI, Reports no additional cardiovascular complaints, Denies acrocyanosis, Denies cool extremities, Denies chest pain, Denies leg edema, Denies lightheadedness, Denies palpitations and Denies dyspnea Respiratory: Reports as per HPI, Denies no additional respiratory complaints and Denies dyspnea Gastrointestinal: Reports as per HPI and Denies no additional gastrointestinal complaints Genitourinary: Reports as per HPI Musculoskeletal: Reports no additional musculoskeletal complaints and Reports as per HPI Skin/Breast: Reports system reviewed and no additional complaints, except as docu Reports system reviewed and no additional complaints, except as documented and Reports as per HPI Psychiatric: Reports no additional psychiatric complaints and Reports as per HPI Endocrine: Reports no additional endocrine complaints, Reports as per HPI and Denies palpitations Hematologic/Lymphatic: Reports no additional hematologic/lymphatic complaints and Reports as per HPI Allergic/Immunologic: Reports no additional allergic/immunologic complaints and Reports as per HPI Physical Exam Vital Signs: Last Vital Signs Temp 97.9 F 07/20/25 08:00 Pulse 97 07/20/25 08:00 Resp 18 07/20/25 08:00 BP 112/63 07/20/25 08:00 Pulse Ox 98 07/20/25 08:00 O2 Del Method Room Air 07/20/25 08:00 BMI result Body Mass Index 49.1 Const General: comfortable and no acute distress Orientation/consciousness: patient oriented x3 HEENT Other: Unremarkable Head: Yes normal to inspection Neck Neck: Yes normal visual inspection Chest Chest palpation & inspection: normal inspection of the chest Resp Auscultation: clear to auscultation bilaterally Cardio Palpation: normal PMI Heart sounds: S1 normal heart sound present, S2 normal heart sound present, no gallops, no murmurs and no rubs GI Palpation (GI): Soft to palpation Back/Spine/Pelvis Other: unremarkable Skin General skin exam: no rashes or lesions noted Neuro General: patient oriented x3 Extrem General: Yes normal to inspection Psych Mental Status: mental status grossly normal Objective Labs and Meds 07/19/25 06:45 07/19/25 06:45 Lab results: Laboratory Results - last 24 hr 07/20/25 06:35 PT 22.7 H INR 2.0 H Progress Note: A&P Assessment and plan (1) Atrial flutter with rapid ventricular response: Status: Acute Plan History of cardiomyopathy, pacemaker implant, atrial flutter versus fibrillation history. Admission EKG likely atrial flutter with rapid rate. In the echocardiogram, LVEF is 50-55% with [id number] tricuspid regurgitation. Keep her on flecainide, metoprolol. Due to lowish blood pressures, cut back on the amlodipine and increase metoprolol dosing rather. Continue anticoagulation. She already has an outpatient appointment and she can keep it. Time Spent With Patient Time: Total time managing care of this patient today ____ minutes. Progress Note: Quality Stroke Does the patient have a stroke diagnosis?: No Procedures Date of Service Date of Service: 07/20/25
[2025-07-20 12:00] VITALS: BP 99/58; PULSE 58; RESP 18; TEMP 36.2; O2SAT 95
--- NOTE | 2025-07-20 12:33 | MHC.CM.PN ---
PER HOSPITALIST PT WILL BE MEDICALLY CLEARED HOME SELF-CARE, PT WILL ARRANGE FOR A RIDE HOME.
--- NOTE | 2025-07-20 12:50 | PM.DS ---
DS: Providers Provider Date of Service: 07/20/25 Date of admission: 07/18/25 15:14 Date of discharge: 07/20/25 Primary care physician: Tiffany Asif MD Consults: 07/18/25 15:25 Consult to Cardiology Routine Consulting Provider: [facility] [place] [facility] Reason for consultation: afib cate Attending physician on discharge: Fabrizio Flannery Discharging clinician: Fabrizio Flannery DS: Diagnosis Discharge Diagnosis (1) Atrial flutter with rapid ventricular response: Status: Acute DS: Summary Hospital Course Hospital Course: HPI:35-year-old woman with a history of atrial fibrillation, pacemaker presented to the ER with complaints of dizziness. She reports that she came to the hospital to have her INR checked and suddenly felt dizzy and sat down before passing out. She reports that her AFib has been controlled but over the last several months she has had more paroxysmal atrial fibrillation and she reports that she does feel the palpitations. Apparently she does have a thrombus present so that could be why she has not been cardioverted. She denied any chest pain, nausea, vomiting, diarrhea, recent illness, sick contacts, recent travel. He recently moved from [place] about 5 months ago. Chest x-ray in the ER was negative consolidation or effusion, head CT negative for acute intracranial abnormality. INR 3.1. She received 2 doses of metoprolol when oral when IV and 1 L of IV fluid. She will be admitted for further management and treatment of presyncope and atrial fibrillation with rapid ventricular response. Hospital course: Patient was admitted for atrial flutter with RVR: Patient initially received a Cardizem drip-heart rate seems to be improved, subsequently also started on her flecainide and metoprolol 25 mg b.i.d. due to borderline blood pressure, blood pressure is somewhat improving, so we adjusted metoprolol to 50 mg b.i.d. pacemaker interrogation was completed and seen by cardiology: Recommended to adjust metoprolol back, continue Entresto and flecainide. We will Hold amlodipine. Patient is currently asymptomatic, going home. Cardiology may arrange outpatient appointment plan: Monitor blood pressure closely-the blood pressure is consistently above 140/90 mmHg, consider reintroducing amlodipine lower dose 5 mg daily outpatient. Follow up with PCP/Cardiology outpatient Above management discussed with the patient in detail length she understand and in agreement with the above plan, time spent 45 minute. Time Attestation Total time managing care of this patient today: 45 mintues. Discharge Coordination Time (in mins): 45 min Quality: Safe Use of Opioids Does Pt have an Active Cancer Diagnosis on the Problem List?: No Quality: Stroke Does the patient have a stroke diagnosis?: No Physical Exam Vital Signs: Vital Signs: Last Vital Signs Temp 97.2 F 07/20/25 12:00 Pulse 58 07/20/25 12:00 Resp 18 07/20/25 12:00 BP 99/58 L 07/20/25 12:00 Pulse Ox 95 07/20/25 12:00 O2 Del Method Room Air 07/20/25 12:00 BMI result Body Mass Index 49.1 Appearance: Alert.? Oriented X3.? cvs: rrr, [id number] . res: clear to auscultation ,no rhonchii or wheezing abd: no rebound or guarding ,nt, bs present. ext pulses present , no cyanosis . neuro: axo3 , nonfocal. DS: Data Data Completed and Pending Labs on day of discharge: Laboratory Results - last 24 hr 07/20/25 06:35 PT 22.7 H INR 2.0 H Imaging Chest x-ray: Radiologist's impression: ITS Impressions Head CT 07/18/25 12:34 IMPRESSION: No acute intracranial pathology. Chest X-Ray 07/18/25 12:43 IMPRESSION: No acute disease. Discharge Plan Discharge Anticipated Discharge Date/Time: 07/20/25 12:41 Patient Disposition: Home, Self-Care Discharge Diagnosis: AFib. Referrals: Tiffany Asif MD [Primary Care Provider, Internal Medicine] - 1 Week Discharge Medications: Continued norethindrone-e.estradiol-iron [ (28)] 1.5 mg-30 mcg (21)/75 mg (7) tablet 1 tab PO DAILY warfarin 2 mg Tablet 3 mg PO SUWE@1800 warfarin 2 mg Tablet 2 mg PO MOTUTHFRSA@1800 flecainide 100 mg tablet 100 mg PO Q12H magnesium oxide 400 mg magnesium capsule 400 mg PO BID metoprolol succinate 50 mg capsule,sprinkle,ER 24hr 50 mg PO BID cholecalciferol (vitamin D3) 25 mcg (1,000 unit) capsule 25 mcg PO BID Entresto 24-26 mg tablet 1 tab PO BID sertraline 100 mg tablet 100 mg PO DAILY Held amlodipine 10 mg tablet 10 mg PO DAILY Hold Instructions: Resume on 08/17/25. Discharge Orders: Discharge Order (Routine); Ordered 07/20/25 Ordered By: Fabrizio Flannery Diet: Advance to usual diet Activity on Discharge: As tolerated Stand Alone Forms: Patient Portal Discharge page Print Language: Luxembourgish Care Plan Goals: as below. Health Concerns: As above. Monitor blood pressure closely-the blood pressure is consistently above 140/90 mmHg, consider reintroducing amlodipine lower dose 5 mg daily outpatient. Follow up with PCP/Cardiology outpatient Plan of Treatment: As above. Assessment: As above.
== END 2025-07-20 15:18 | disposition home or self-care (01) | DRG 201 ==
LOC: HO.ED 12:31 → HO.EDOVER 15:21 → HO.IMC 16:11
PROVIDERS: Emergency Medicine; Admitting Provider Nurse Practitioner Acute Care; Emergency Provider Emergency Medicine; PCP Internal Medicine; Visit Provider Internal Medicine
DX: I48.92 Unspecified atrial flutter (principal); E66.813 Obesity, class 3; F32.A Depression, unspecified; I07.1 Rheumatic tricuspid insufficiency; I10 Essential (primary) hypertension; Z71.3 Dietary counseling and surveillance; Z45.018 Encounter for adjustment and management of other part of cardiac pacemaker; Z68.42 Body mass index [BMI] 45.0-49.9, adult; Z79.01 Long term (current) use of anticoagulants; Z79.899 Other long term (current) drug therapy
CPT/HCPCS: 36415; 70450; 71045; 80048; 80053; 82947; 83735; 83880; 84443; 84484; 85025; 85610; 93005; 93306; 99285; J0616; J1163; J7120; Q9957

== ENCOUNTER → 2025-07-18 11:08 | Outpatient (BNV) | payer MEDICAID, SELFPAY | PROVIDERS: Admitting Provider Nurse Practitioner Acute Care; Emergency Provider Emergency Medicine; PCP Internal Medicine; Visit Provider Internal Medicine | DX: I51.7 Cardiomegaly (principal) | CPT/HCPCS: 93010 ==

== ENCOUNTER → 2025-07-18 12:30 | Outpatient (BNV) | payer MEDICAID, SELFPAY | PROVIDERS: Emergency Provider Emergency Medicine; PCP Internal Medicine; Visit Provider Radiology Diagnostic Radiology | DX: R42 Dizziness and giddiness (principal); T45.515A Adverse effect of anticoagulants, initial encounter | CPT/HCPCS: 70450; 71045 ==

== ENCOUNTER 2025-07-18 15:14 | Outpatient (BNV) | payer MEDICAID, SELFPAY | END 2025-07-19 07:00 | PROVIDERS: Admitting Provider Nurse Practitioner Acute Care; Emergency Provider Emergency Medicine; PCP Internal Medicine; Visit Provider Internal Medicine | DX: I34.0 Nonrheumatic mitral (valve) insufficiency (principal); I36.1 Nonrheumatic tricuspid (valve) insufficiency | CPT/HCPCS: 93306 ==

== ENCOUNTER → 2025-07-18 15:14 | Outpatient (BNV) | payer MEDICAID, SELFPAY | PROVIDERS: Admitting Provider Nurse Practitioner Acute Care; Emergency Provider Emergency Medicine; PCP Internal Medicine; Visit Provider Internal Medicine | DX: I48.92 Unspecified atrial flutter (principal) | CPT/HCPCS: 99223 ==

== ENCOUNTER → 2025-07-18 15:14 | Outpatient (BNV) | payer MEDICAID, SELFPAY | PROVIDERS: Admitting Provider Nurse Practitioner Acute Care; Emergency Provider Emergency Medicine; PCP Internal Medicine; Visit Provider Nurse Practitioner Acute Care | DX: I48.91 Unspecified atrial fibrillation (principal) | CPT/HCPCS: 99222; 99232 ==

== ENCOUNTER 2025-07-27 10:28 | Outpatient (AMB) | payer MEDICAID, SELFPAY ==
--- OUTSIDE RECORDS SUMMARY | 2004-04-15 19:00 | XMS_ITS | Continuity of Care Document ---
Author Organization Chris Ritchie [facility] Address [address] [place] [address] Phone Care Team Providers Care Pipe Cleaning Machine Operator Name Role Phone Z-Converted, Provider Unavailable Unavailabl e Advance Directives Directive Yes / No Effective Date File Name No Information Encounters Encounter Description Practice Location Reason(s) For Visit Diagnoses Date Provider Providers Copied on Encounter Chris Carreno [facility], [address] [place] [address],[address], [place], [place], [id number], [place] tel:[phone] [place] [facility] Elevated blood pressure reading without diagnosis [...] Record Payers Payer name Insurance type Covered green party ID Authoriza tion(s) No Information Social [...]
--- NOTE | 2025-07-27 10:42 | MHC.OFFVISCO ---
Intake Intake Visit Reasons: Anticoagulation Allergies bupropion Allergy (Intermediate, Verified 07/27/25 10:35) Hives Medication List - Last Reconciled 07/27/25 by Sagrario Weiss RN amlodipine 10 mg PO DAILY Held on 07/20/25. Instructions: Resume on 08/17/25. cholecalciferol (vitamin D3) 25 mcg PO BID flecainide 100 mg PO Q12H magnesium oxide 400 mg PO BID metoprolol succinate ER 50 mg PO BID norethindrone-e.estradiol-iron 1.5 mg-30 mcg ()/75 mg (7) ( FE ()) 1 tab PO DAILY sacubitril-valsartan 24-26 mg (Entresto) 1 tab PO BID sertraline 100 mg PO DAILY warfarin 3 mg PO SUWE@1800 warfarin 2 mg PO MOTUTHFRSA@1800 Nursing Note INR 1.7-?? out of therapeutic range 2-3 pt states may have missed a dose yesterday Medications and supplements reviewed Patient status: pt recent hospitalization [facility] [place] for aflutter Medications or supplements: no changes Diet: appetite is good Denies any signs and symptoms of bleeding or clotting or unusual bruising Bleeding, bruising, clotting discussed Nutritional guidance given: no greens for 2-3 days, eat reds to raise Dose: 7.5mg today then cont prev dosing- 7.5mg x 2, 5mg x 5 F/U INR Date : 1 week? Patient verbalizing understanding of instructions given. Anti-Coag Initial Assessment Social Hx Patient Tobacco Use Status: Never used Tobacco alcohol intake: current Alcohol intake frequency: holidays/special occasions only Cardiovascular Hx: HTN, Angina, CHF, Arrhythmias (pacemaker, afib, sss), Cardiomyopathy and Other (pacemaker) Lung Disease HX: DVT/PE (blood clot right atrium) and Other (sleep apnea) Neurological Hx: Stroke/TIA (mini stroke 2010 per pt) Cancer HX: No Psych. Illness/Depression: Yes (depression/anxiety) Coding Level of Care Code Est Patient Level 1 Diagnoses Current use of anticoagulant therapy Z79.01 Results AMB INR Fingerstick AMB INR Fingerstick 1.7 Last Edit by Sagrario Weiss RN on 07/27/25 10:44 interface delay Assessment & Plan Assessment & Plan (1) Current use of anticoagulant therapy: Code(s): Z79.01 - emt intermediate (current) use of anticoagulants Category: Medical Medications: New warfarin 2.5 mg See Protocol PO DAILY
[2025-07-28 09:07] LABS: Prothrombin Time Whole Bld POC 20.1 sec (11.1-13.5); ~PT, ~INR - Anti Coag Clinic 1.7 (0.9-1.1)
== END 2025-07-27 10:49 | disposition home or self-care (01) ==
LOC: HO.ACS 10:28
PROVIDERS: PCP Internal Medicine; Visit Provider Internal Medicine Medical Oncology
DX: Z79.01 Long term (current) use of anticoagulants (principal)

== ENCOUNTER → 2025-07-27 10:28 | Outpatient (BNVA) | payer MEDICAID, SELFPAY | PROVIDERS: PCP Internal Medicine; Visit Provider Internal Medicine Medical Oncology | DX: I48.0 Paroxysmal atrial fibrillation (principal); I48.19 Other persistent atrial fibrillation; Z51.81 Encounter for therapeutic drug level monitoring; Z79.01 Long term (current) use of anticoagulants | CPT/HCPCS: 85610; 99211 ==

== ENCOUNTER 2025-08-03 10:00 | Outpatient (AMB) | payer MEDICAID, SELFPAY ==
--- OUTSIDE RECORDS SUMMARY | 2004-04-15 19:00 | XMS_ITS | Continuity of Care Document ---
Author Organization Chris Ritchie [facility] Address [address] [place] [address] Phone Care Team Providers Care Plastic Cablemaking Machine Operator Name Role Phone Z-Converted, Provider Unavailable Unavailabl e Advance Directives Directive Yes / No Effective Date File Name No Information Encounters Encounter Description Practice Location Reason(s) For Visit Diagnoses Date Provider Providers Copied on Encounter Chris Carreno [facility], [address] [place] [address] 2,[address], [place], [place], [id number], [place] tel:[phone] [facility] Elevated blood pressure reading without diagnosis of hypertensionOth er general medical examination for administrative purposes 4 Z-Convert ed Provider. . Family History Family Member Type Diagnosis Age At Onset No Information Immunizations Vaccine Date Status Comments Tetanus and Diphtheria Toxoid administere d Source: New Immunization Record Hepatitis B (a) CHILD administered Source : New Immunization Record Hepatitis B (a) CHILD administered Source : New Immunization Record Measles Mumps Rubella administered Source : New Immunization Record Diphtheria Tetanus Pertussis administered Source: New Immunization Record Polio (Injection) administered Source: Ne w Immunization Record Diphtheria Tetanus Pertussis administered Source: New Immunization Record Diphtheria Tetanus Pertussis administered Source: New Immunization Record Polio (Injection) administered Source: Ne w Immunization Record Hemophilus Influenza B administered Sourc e: New Immunization Record Polio (Injection) administered Source: Ne w Immunization Record Diphtheria Tetanus Pertussis administered Source: New Immunization Record Measles Mumps Rubella administered Source : New Immunization Record Diphtheria Tetanus Pertussis administered Source: New Immunization Record Polio (Injection) administered Source: Ne w Immunization Record Payers Payer name Insurance type Covered constitution party ID Authoriza tion(s) No Information Social History Type Description Quantity Date Captured Comments Sex Female Smoking Status No Information Chief Complaint And Reason For Visit No Information Reason For Referral Reason For Referral No Information History Of Present Illness Encounter Date Complaint History Of Prese nt Illness No Information Functional Status Date Functional Assessmen t No Information Instructions Date Instruction Additional Infor mation No Information Assessments Type Assessment Date No Information Patient Care Teams Name Effective Dates (start - stop) Status Members No Information
[2025-08-03 10:05] LABS: Prothrombin Time Whole Bld POC 30.1 sec (11.1-13.5); ~PT, ~INR - Anti Coag Clinic 2.5 (0.9-1.1)
--- NOTE | 2025-08-03 10:10 | MHC.OFFVISCO ---
Intake Intake Visit Reasons: Anticoagulation Allergies bupropion Allergy (Intermediate, Verified 08/03/25 10:01) Hives Medication List - Last Reconciled 08/03/25 by Lachelle Dupree, RN amlodipine 10 mg PO DAILY Held on 07/20/25. Instructions: Resume on 08/17/25. cholecalciferol (vitamin D3) 25 mcg PO BID flecainide 100 mg PO Q12H magnesium oxide 400 mg PO BID metoprolol succinate ER 50 mg PO BID norethindrone-e.estradiol-iron 1.5 mg-30 mcg (21)/75 mg (7) ( FE 1.5/ ()) 1 tab PO DAILY sacubitril-valsartan 24-26 mg (Entresto) 1 tab PO BID sertraline 100 mg PO DAILY warfarin 2.5 mg See Protocol PO DAILY Nursing Note INR: 2.5 in therapeutic range of 2-3 Medications and supplements reviewed No changes in health, diet, medications, or supplements, Denies any signs and symptoms of bleeding or bruising or clotting. Bleeding, bruising, clotting discussed Nutritional guidance given Dose: 5mg X 5 days and 7.5mg X 2 days F/U INR: 3 weeks Patient verbalizes understanding of instructions given Anti-Coag Initial Assessment Social Hx Patient Tobacco Use Status: Never used Tobacco alcohol intake: current Alcohol intake frequency: holidays/special occasions only Cardiovascular Hx: HTN, Angina, CHF, Arrhythmias (pacemaker, afib, sss), Cardiomyopathy and Other (pacemaker) Lung Disease HX: DVT/PE (blood clot right atrium) and Other (sleep apnea) Neurological Hx: Stroke/TIA (mini stroke 2011 per pt) Cancer HX: No Psych. 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
== END 2025-08-03 10:14 | disposition home or self-care (01) ==
LOC: HO.ACS 10:00
PROVIDERS: PCP Internal Medicine; Visit Provider Internal Medicine Medical Oncology
DX: Z79.01 Long term (current) use of anticoagulants (principal)

== ENCOUNTER → 2025-08-03 10:00 | Outpatient (BNVA) | payer MEDICAID, SELFPAY | PROVIDERS: PCP Internal Medicine; Visit Provider Internal Medicine Medical Oncology | DX: I48.19 Other persistent atrial fibrillation (principal); Z51.81 Encounter for therapeutic drug level monitoring; Z79.01 Long term (current) use of anticoagulants | CPT/HCPCS: 85610; 99211 ==

== ENCOUNTER 2025-08-23 11:06 | Outpatient (AMB) | payer MEDICAID, SELFPAY ==
[2025-08-23 11:11] LABS: Prothrombin Time Whole Bld POC 21.5 sec (11.1-13.5); ~PT, ~INR - Anti Coag Clinic 1.8 (0.9-1.1)
--- NOTE | 2025-08-23 11:16 | MHC.OFFVISCO ---
Intake Intake Visit Reasons: Anticoagulation Allergies bupropion Allergy (Intermediate, Verified 08/23/25 11:07) Hives Medication List - Last Reconciled 08/23/25 by Lachelle Dupree RN amlodipine 10 mg PO DAILY Held on 07/20/25. Instructions: Resume on 08/17/25. cholecalciferol (vitamin D3) 25 mcg PO BID flecainide 100 mg PO Q12H magnesium oxide 400 mg PO BID metoprolol succinate ER 50 mg PO BID norethindrone-e.estradiol-iron 1.5 mg-30 mcg (21)/75 mg (7) ( FE 1.5/30 (28)) 1 tab PO DAILY sacubitril-valsartan 24-26 mg (Entresto) 1 tab PO BID sertraline 100 mg PO DAILY warfarin 2.5 mg See Protocol PO DAILY Nursing Note INR: 1.8 out of therapeutic range of 2-3 Medications and supplements reviewed Patient status: feels well Medications or supplements: no changes Diet: usual diet for pt Denies any signs and symptoms of bleeding or clotting or unusual bruising Bleeding, bruising, clotting discussed Nutritional guidance given: to avoid greens today and to have a serving of foods that raise the INR. Food list discussed and handout given to pt of foods that raise and foods that lower the INR Dose: increase today's dose to 7.5mg (5mg) then resume usual dose of 5mg X 5 days and 7.5mg X 2 days (Wed & Wed) F/U INR Date: 2 weeks?? Patient verbalizing understanding of instructions given. Anti-Coag Initial Assessment Social Hx Patient Tobacco Use Status: Never used Tobacco alcohol intake: current Alcohol intake frequency: holidays/special occasions only Cardiovascular Hx: HTN, Angina, CHF, Arrhythmias (pacemaker, afib, sss), Cardiomyopathy and Other (pacemaker) Lung Disease HX: DVT/PE (blood clot right atrium) and Other (sleep apnea) Neurological Hx: Stroke/TIA (mini stroke 2011 per pt) Cancer HX: No Psych. Illness/Depression: Yes (depression/anxiety) Coding Level of Care Code Est Patient Level 1 Diagnoses Current use of anticoagulant therapy Z79.01 Results AMB INR Fingerstick AMB INR Fingerstick 1.8 Last Edit by Lachelle Dupree RN on 08/23/25 11:12 interface delay Assessment & Plan Assessment & Plan (1) Current use of anticoagulant therapy: Code(s): Z79.01 - FDC (current) use of anticoagulants Category: Medical
== END 2025-08-23 11:21 | disposition home or self-care (01) ==
LOC: HO.ACS 11:06
PROVIDERS: PCP Internal Medicine; Visit Provider Internal Medicine Medical Oncology
DX: Z79.01 Long term (current) use of anticoagulants (principal)

== ENCOUNTER → 2025-08-23 11:06 | Outpatient (BNVA) | payer MEDICAID, SELFPAY | PROVIDERS: PCP Internal Medicine; Visit Provider Internal Medicine Medical Oncology | DX: I48.0 Paroxysmal atrial fibrillation (principal); I48.19 Other persistent atrial fibrillation; Z51.81 Encounter for therapeutic drug level monitoring; Z79.01 Long term (current) use of anticoagulants | CPT/HCPCS: 85610; 99211 ==

== ENCOUNTER 2025-09-14 10:04 | Outpatient (AMB) | payer MEDICAID, SELFPAY ==
[2025-09-14 10:18] LABS: Prothrombin Time Whole Bld POC 30.3 sec (11.1-13.5); ~PT, ~INR - Anti Coag Clinic 2.5 (0.9-1.1)
--- NOTE | 2025-09-14 10:21 | MHC.OFFVISCO ---
Intake Intake Visit Reasons: Anticoagulation Allergies bupropion Allergy (Intermediate, Verified 09/14/25 10:11) Hives Medication List - Last Reconciled 09/14/25 by Lachelle Dupree, RN amlodipine 10 mg PO DAILY Held on 07/20/25. Instructions: Resume on 08/17/25. cholecalciferol (vitamin D3) 25 mcg PO BID flecainide 100 mg PO Q12H magnesium oxide 400 mg PO BID metoprolol succinate ER 50 mg PO BID norethindrone-e.estradiol-iron 1.5 mg-30 mcg (21)/75 mg (7) ( FE 1.5/ ()) 1 tab PO DAILY sacubitril-valsartan 24-26 mg (Entresto) 1 tab PO BID sertraline 100 mg PO DAILY warfarin 2.5 mg See Protocol PO DAILY Nursing Note INR: 2.5 in therapeutic range of 2-3 Medications and supplements reviewed No changes in health, diet, medications, or supplements, Denies any signs and symptoms of bleeding or bruising or clotting. Bleeding, bruising, clotting discussed Nutritional guidance given Dose: 5mg X 5 days and 7.5mg X 2 days (Wed & Wed) F/U INR: 2 weeks Patient verbalizes understanding of instructions given Anti-Coag Initial Assessment Social Hx Patient Tobacco Use Status: Never used Tobacco alcohol intake: current Alcohol intake frequency: holidays/special occasions only Cardiovascular Hx: HTN, Angina, CHF, Arrhythmias (pacemaker, afib, sss), Cardiomyopathy and Other (pacemaker) Lung Disease HX: DVT/PE (blood clot right atrium) and Other (sleep apnea) Neurological Hx: Stroke/TIA (mini stroke 2011 per pt) Cancer HX: No Psych. 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
== END 2025-09-14 10:22 | disposition home or self-care (01) ==
LOC: HO.ACS 10:04
PROVIDERS: PCP Internal Medicine; Visit Provider Internal Medicine Medical Oncology
DX: Z79.01 Long term (current) use of anticoagulants (principal)

== ENCOUNTER → 2025-09-14 10:04 | Outpatient (BNVA) | payer MEDICAID, SELFPAY | PROVIDERS: PCP Internal Medicine; Visit Provider Internal Medicine Medical Oncology | DX: I48.0 Paroxysmal atrial fibrillation (principal); Z51.81 Encounter for therapeutic drug level monitoring; Z79.01 Long term (current) use of anticoagulants | CPT/HCPCS: 85610; 99211 ==